=== PATIENT | female | born 1980 | race Caucasian/White ===

== ENCOUNTER 2024-09-06 10:51 | Outpatient (REF) | payer OTHER, SELFPAY ==
[2024-09-06 17:48] LABS: MANUAL DIFF FLAG NO
[2024-09-06 18:04] LABS: Appearance Urine Clear; Color Urine Yellow; Glucose Urine UA Negative (Negative); Leukocyte Esterase Urine Moderate (2+) (Negative); Nitrite Urine Negative (Negative); UMIC TRIGGER UA YES; Urine Blood Large (3+) (Negative); Urine Ketones Trace mg/dL (Negative); Urine Protein Negative (Neg-Trace)
[2024-09-06 18:30] LABS: Basophils Absolute Auto 0.1 X10*3/uL (0.0-0.2); Basophils Percent Auto 0.9 % (0-2); Eosinophils Absolute Auto 0.1 X10*3/uL (0.0-0.4); Eosinophils Percent Auto 0.7 % (0-4); Hematocrit 42.2 % (37.0-47.0); Hemoglobin 13.3 g/dl (12.0-16.0); Imm Gran Abs Auto 0.05 X10*3/uL (0.00-0.03); Imm Gran Pct Auto 0.5 % (0.0-0.4); Lymphocytes Absolute Auto 2.3 X10*3/uL (1.2-4.9); Lymphocytes Percent Auto 23.8 % (20-40); Mean Corpuscular HGB Conc 31.5 g/dl (31.0-35.0); Mean Corpuscular Hemoglobin 26.3 pg (27.0-33.0); Mean Corpuscular Volume 83.6 fL (80.0-98.0); Mean Platelet Volume 10.2 fL (9.4-12.3); Monocytes Absolute Auto 0.5 X10*3/uL (0.1-1.2); Monocytes Percent Auto 4.7 % (2-11); Neutrophils Absolute Auto 6.7 x10*3/uL (2.0-8.3); Neutrophils Percent Auto 69.4 % (45-73); Platelet Count 455 X10*3/uL (160-400); Red Blood Count 5.05 X10*6/uL (4.20-5.50); Red Cell Distribution Width 14.5 % (11.0-16.0); White Blood Count 9.6 X10*3/uL (4.8-10.8)
[2024-09-06 18:32] LABS: Alanine Aminotransferase 17 U/L (0-31); Aspartate Amino Transferase 29 U/L (5-31); C Reactive Protein 0.79 mg/dL (< or = 0.50); Estimated Glomerular Filt Rate > 60
[2024-09-06 18:42] LABS: Creatinine Urine 123.38 mg/dL; Total Protein Urine Random < 7 mg/dL (<12)
[2024-09-06 18:44] LABS: Bacteria Urine 4+ (None Seen); Hyaline Casts Urine 0-2 /LPF (0-2); RBC Urine >20 /HPF (0-2); WBC Urine 21-50 /HPF (0-5)
[2024-09-06 19:38] LABS: Erythrocyte Sedimentation Rate 13 MM/HR (0-20)
[2024-09-07 15:24] LABS: Anti DNA DS Antibody 1 IU/mL; SM/Ribonucleoprotein Ab <1.0 NEG AI (<1.0 NEG); Smith Protein <1.0 NEG AI (<1.0 NEG)
[2024-09-10 17:54] LABS: Complement C3 167 mg/dL (83-193)
[2024-09-11 10:04] LABS: ANA Titer 2 1:40 titer; Anti Nuclear Antibody Pattern Nuclear, Homogeneous; Anti Nuclear Antibody Screen POSITIVE (NEGATIVE); Anti Nuclear Antibody Titer 1:40 titer
== END 2024-09-06 10:52 | disposition home or self-care (01) ==
LOC: HO.HKASLDS 10:51
PROVIDERS: PCP Hospitalist; Visit Provider Internal Medicine Rheumatology
DX: R76.8 Other specified abnormal immunological findings in serum (principal); Z79.60 Long term (current) use of unspecified immunomodulators and immunosuppressants
CPT/HCPCS: 36415; 81001; 82565; 82570; 84156; 84450; 84460; 85025; 85652; 86038; 86039; 86140; 86160; 86225; 86235

== ENCOUNTER 2024-09-06 10:51 | Outpatient (AMB) | payer OTHER, SELFPAY ==
--- NOTE | 2024-09-06 11:21 | A.OFFVIS_ITS ---
Vital Signs 09/06/24 11:23 Height 5 ft 6 in Weight 162 lb BMI 26.1 BP 122/67 Blood Pressure Location Lt brachial Position Sitting Pulse 59 Pulse Source Pulse Oximeter Pulse Oximetry (%) 98 Oxygen Delivery Method Room Air Intake Visit Reasons: +HAMIDA Intake Note: Patient present for +HAMIDA blood work externally referred by Dr. Blum, kidney specialist. Patient has records with her today. Allergies morphine Allergy (Mild, Verified 09/06/24 11:27) rash, anaphylaxis. Penicillins Allergy (Mild, Verified 09/06/24 11:27) Rash codeine Adverse Reaction (Mild, Verified 09/06/24 11:27) Rash HPI HPI +HAMIDA: Details: When she was young she had joint pains in her ankle, oral ulcers and positive HAMIDA 1:800. Lupus was suspected. She saw Dr. Florez who did not find evidence of systemic lupus and reported that she had false positive HAMIDA. Patient brought in records, which I have reviewed. Positive HAMIDA 1:640 with repeat 1:320 1995. Subsequently she has had HAMIDA is repeated in 2001 and 2002. HAMIDA has been 1:800 in 2001. She continues to have oral ulcers 1-2 twice a month She has chronic fatigue and joint pain. No joint swelling. She has pain in knees, ankles, 6 months of lateral hips, lower back pain. She is turning over from side to side at [facility] due pain. Bilateral knee pain for 4 years. Pain is worse with walking and going up stairs. No pain in knees with rest. She lost weight on wegovy 40lb, gained 30lbs when off of it and recently started it again. Not self medicating. medicating. No functional limitation. Malar rash exacerbated with fatigue. She has had malar rash for years. Fingers and big toe turns purple after she comes home from work and changes cloths with parenthesis in toes. It takes half an hour for symptoms to resolve without warming. She does not like wearing socks. Occurs more frequently in feet than fingers. She has epsiodes of an area of finger turning purple and painful lasting up to 3 days, self resolves. Recently started taking magnesium supplement for hip pain with some benefit. Takes ibuprofen 800mg PRN neck pain. Denies fevers, pleurisy, dyspnea, urinary symptoms, paresthesias in sicca symptoms, history of PE or miscarriages. Pmx: HTN, hyperkalemia Hx cholescytectomy, hyperaparathrydoism with hypercalcium s/p parathyroidectomy, breast mass removal, breast reduction Mother has OA. 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 [employer] Medical History (Updated 09/06/24 @ 22:41 by Jony Jorge MD) Parathyroid gland disorder FH: cholecystectomy Surgical History (Updated 09/06/24 @ 11:32 by Tatiana Schultz CMA) S/P bilateral breast reduction Family History (Updated 09/06/24 @ 11:34 by Tatiana Schultz CMA) Mother Osteoarthritis Father Non-Hodgkin lymphoma Social History (Updated 09/06/24 @ 11:35 by Tatiana Schultz CMA) Alcohol intake: current Alcohol intake frequency: holidays/special occasions only Comment: selzer Tobacco use type: Cigarette Review of Systems Const All systems reviewed & are unremarkable except as noted in HPI and below Physical Exam Vital Signs: Last Vital Signs Pulse 59 09/06/24 11:23 BP 122/67 09/06/24 11:23 Pulse Ox 98 09/06/24 11:23 Oxygen Delivery Method Room Air 09/06/24 11:23 BMI result Body Mass Index 26.1 Const Other: General: Comfortable CVS: RRR Respiratory: clear to auscultation bilaterally. Good respiratory effort Oral: No oral ulceration Skin: Malar erythema present, discoloration of fingertips, no digital ulcers. MSK: No tenderness of any joints. No synovitis. Good range of motion of upper extremities and lower extremities. Bilateral trochanteric bursa present. Assessment & Plan Assessment & Plan (1) Positive HAMIDA (antinuclear antibody): Comment: She is presenting with malar rash, recurrent oral ulcers, and Raynaud's phenomenon. I will further workup for systemic lupus erythematosus with labs. She has episodes of areas of purple appearing on her fingers with pain lasting up to 3 days of unclear etiology. I have asked her to keep a photo diary. Code(s): R76.8 - Other specified abnormal immunological findings in serum Category: Medical Plan: Labs ordered We discussed conservative management of Raynaud's phenomenon Photo diary Return to clinic in 2-3 weeks without makeup (2) Knee pain, bilateral: Comment: Chronic knee pain. Unremarkable exam. Code(s): M25.561 - Pain in right knee; M25.562 - Pain in left knee Category: Medical Qualifiers: Chronicity: chronic Qualified Code(s): M25.561 - Pain in right knee; M25.562 - Pain in left knee; G89.29 - Other chronic pain Plan: X-ray bilateral knees ordered Return to clinic in 2-3 weeks (3) Trochanteric bursitis of both hips: Comment: Discussed diagnosis and conservative management. Code(s): M70.61 - Trochanteric bursitis, right hip; M70.62 - Trochanteric bursitis, left hip Category: Medical Plan: PT ordered (4) Raynaud disease: Comment: Affecting feet and fingers. Code(s): I73.00 - Raynaud's syndrome without gangrene Category: Medical Qualifiers: Raynaud?s-associated gangrene presence: without gangrene Qualified Code(s): I73.00 - Raynaud's syndrome without gangrene Plan: Discussed conservative management Orders: Orders C Reactive Protein Today R76.8 - Other specified abnormal immunological findings in serum Creatinine Today Z79.60 - long term acute care registered nurse (current) use of unspecified immunomod ulators and immunosuppressants Complement C3 Today R76.8 - Other specified abnormal immunological findings in serum Protein Creatinine Ratio, Ur Today R76.8 - Other specified abnormal immunological findings in serum UA w Microscopic Today R76.8 - Other specified abnormal immunological findings in serum XR knee standing BI Today M25.561 - Pain in right knee, M25.562 - Pain in left knee, R76.8 - Other specified abnormal immunological findings in serum PT Evaluation and Treatment Today M25.561 - Pain in right knee, M25.562 - Pain in left knee, M70.61 - Trochanteric bursitis, right hip, M70.62 - Trochanteric bursitis, left hip Erythrocyte Sedimentation Rate Today R76.8 - Other specified abnormal immunological findings in serum Alanine Aminotransferase Today Z79.60 - skilled nursing (current) use of unspecified immunomodulators and immunosuppressants Aspartate Amino Transferase Today Z79.60 - long term acute care registered nurse (current) use of unspecified immunomodulators and immunosuppressants Complete Blood Count Auto Diff Today Z79.60 - skilled nursing (current) use of unspecified immunomodulators and immunosuppressants HAMIDA Reflex Titer and Pattern Today R76.8 - Other specified abnormal immunological findings in serum Anti DNA DS Antibody Today R76.8 - Other specified abnormal immunological findings in serum Anti Extractable Nuclear Ag Today R76.8 - Other specified abnormal immunological findings in serum Complement C4 Today R76.8 - Other specified abnormal immunological findings in serum Coding Level of Care Code New Pt Level 4 (04024) Diagnoses Positive HAMIDA (antinuclear antibody) R76.8 Chronic pain of both knees M25.561; M25.562; G89.29 Chronicity: chronic Trochanteric bursitis of both hips M70.61; M70.62 Raynaud's disease without gangrene I73.00 Raynaud?s-associated gangrene presence: without gangrene
[2024-09-06 11:23] VITALS: BP 122/67; PULSE 59; O2SAT 98; BMI 26.1
== END 2024-09-06 12:34 | disposition home or self-care (01) ==
PROVIDERS: PCP Hospitalist; Visit Provider Internal Medicine Rheumatology
DX: R76.8 Other specified abnormal immunological findings in serum (principal); M25.561 Pain in right knee; M25.562 Pain in left knee; G89.29 Other chronic pain; M70.61 Trochanteric bursitis, right hip; M70.62 Trochanteric bursitis, left hip; I73.00 Raynaud's syndrome without gangrene
CPT/HCPCS: 99204

== ENCOUNTER 2024-09-27 09:49 | Outpatient (AMB) | payer OTHER, SELFPAY ==
[2024-09-27 09:56] VITALS: BP 120/70; PULSE 60; O2SAT 100; BMI 26.3
--- NOTE | 2024-09-27 09:56 | MHC.OFFVIS ---
Vital Signs 09/27/24 09:56 Height 5 ft 6 in Weight 163 lb 2 oz BMI 26.3 BP 120/70 Blood Pressure Location Lt brachial Position Sitting Pulse 60 Pulse Source Pulse Oximeter Pulse Oximetry (%) 100 Oxygen Delivery Method Room Air Intake Visit Reasons: 2-3 Weeks follow up Intake Note: Patient presents today for follow up on bilateral knee pain. She was last seen by Dr. Jorge on 09/06/24. Allergies morphine Allergy (Mild, Verified 09/27/24 09:59) rash, anaphylaxis. Penicillins Allergy (Mild, Verified 09/27/24 09:59) Rash codeine Adverse Reaction (Mild, Verified 09/27/24 09:59) Rash HPI HPI 2-3 Weeks follow up: Details: She had an episode where she had blue discoloration in between her 1st and 2nd webspace of her hand without any pain. Self resolve. Raynaud's is active being managed conservatively. [facility] Medical History (Updated 09/27/24 @ 12:48 by Jony Jorge MD) Parathyroid gland disorder FH: cholecystectomy Surgical History (Updated 09/06/24 @ 11:32 by Tatiana Schultz CMA) S/P bilateral breast reduction Family History (Updated 09/06/24 @ 11:34 by Tatiana Schultz CMA) Mother Osteoarthritis Father Non-Hodgkin lymphoma Social History (Updated 09/06/24 @ 11:35 by Tatiana Schultz CMA) Alcohol intake: current Alcohol intake frequency: holidays/special occasions only Comment: selzer Tobacco use type: Cigarette Review of Systems Const All systems reviewed & are unremarkable except as noted in HPI and below Physical Exam Vital Signs: Last Vital Signs Pulse 60 09/27/24 09:56 BP 120/70 09/27/24 09:56 Pulse Ox 100 09/27/24 09:56 Oxygen Delivery Method Room Air 09/27/24 09:56 BMI result Body Mass Index 26.3 Const Other: General: Comfortable Skin: Malar erythema present, which extends past nasolabial folds, discoloration of fingertips, no digital ulcers. MSK: No tenderness of any joints. No synovitis. Assessment & Plan Assessment & Plan (1) Positive HAMIDA (antinuclear antibody): Comment: She is presenting with malar rash, recurrent oral ulcers, fatigue and Raynaud's phenomenon. We discussed lab results, which revealed thrombocytosis and elevated CRP level. UA reveals hematuria but patient was spotting at the time when it was done. She does not have specific markers or disease activity markers related to systemic lupus erythematosus. Her malar rash appears to represent rosacea rather than rash associated with cutaneous lupus. At this time my clinical suspicion for systemic connective tissue disease is low. Code(s): R76.8 - Other specified abnormal immunological findings in serum Category: Medical Plan: We discussed conservative management of Raynaud's phenomenon Photo diary Repeating CBC and UA Dermatology follow-up [facility] for evaluation and management of rosacea I recommend that she follow-up with PCP for evaluation of fatigue and consider sleep study. We discussed importance of exercise. She used to have a very active lifestyle and now goes to sleep around 7:30-8pm every day. I recommend that she resume exercise routine daily 15-30 minutes each day. Return to clinic in 3 months for Raynaud's syndrome, trochanteric bursa and knee pain management (2) Knee pain, bilateral: Comment: Chronic knee pain. Unremarkable exam. Code(s): M25.561 - Pain in right knee; M25.562 - Pain in left knee Category: Medical Qualifiers: Chronicity: chronic Qualified Code(s): M25.561 - Pain in right knee; M25.562 - Pain in left knee; G89.29 - Other chronic pain Plan: X-ray bilateral knees ordered. Reminded patient to have x-rays done She will be starting physical therapy Return to clinic in 3 months (3) Trochanteric bursitis of both hips: Comment: Discussed diagnosis and conservative management. Code(s): M70.61 - Trochanteric bursitis, right hip; M70.62 - Trochanteric bursitis, left hip Category: Medical Plan: She will be starting physical therapy Return to clinic in 3 months (4) Raynaud disease: Comment: Affecting feet and fingers. Code(s): I73.00 - Raynaud's syndrome without gangrene Category: Medical Qualifiers: Raynaud?s-associated gangrene presence: without gangrene Qualified Code(s): I73.00 - Raynaud's syndrome without gangrene Plan: Discussed conservative management Return to clinic in 3 months Orders: Orders XR knee LT 2V Today M17.0 - Bilateral primary osteoarthritis of knee Complete Blood Count Auto Diff Today D75.839 - Thrombocytosis, unspecified, R76.8 - Other specified abnormal immunological findings in serum XR knee RT 2V Today M17.0 - Bilateral primary osteoarthritis of knee UA w Microscopic Today D75.839 - Thrombocytosis, unspecified, R76.8 - Other specified abnormal immunological findings in serum Coding Level of Care Code Est Pt Level 4 (57538) Complex EM visit Add On G2211 Diagnoses Positive HAMIDA (antinuclear antibody) R76.8 Chronic pain of both knees M25.561; M25.562; G89.29 Chronicity: chronic Trochanteric bursitis of both hips M70.61; M70.62 Raynaud's disease without gangrene I73.00 Raynaud?s-associated gangrene presence: without gangrene
--- OUTSIDE RECORDS SUMMARY | 2024-09-27 12:52 | XMS_ITS ---
Author Organization [facility] Address [address] [address] Care Team Providers Care Candy Mixer Name Role Phone GENIE YORK Primary Care Provider REASON FOR VISIT Hospital follow up needed Encounters Encounter Location Date Provider Diagnosis [facility] [address] [facility] [address] [place] [address] 08/10/2024 GENIE YORK Plan Of Treatment Next Appt Details Provider Name:GENIE YORK , 10/22/2024 03:45:00 PM, [address] [facility] [address], [place], [address], Progress Notes * ANDRADE SAAVEDRA ADOB:1980 (44 yo F)Acc No.[id number]:08/10/2024 Patient:?ANDRADE SAAVEDRA :1980???Age:44 Y???Sex:Female Address:[address], [place] [address] * true * Date:? Generated for Gurvinderi estuardo/Emelyn/eTransmitting on:?09/27/2024 12:52 PM EST
--- OUTSIDE RECORDS SUMMARY | 2024-09-27 12:53 | XMS_ITS | Clinical Summary ---
Author Organization [facility] Address [address] [address] Phone Care Team Providers Care Hydrogen Cell Tender Name Role Phone Clarence Huynh MD Primary Care Provider [phone] Allergies Active Allergy Reactions Criticality Noted Date Comments Codeine Rash Low 06/14/2023 Other reaction(s): headache that went to face and back Latex Rash,Other (see comments) Low 06/14/2023 Morphine 06/14/2023 Other reaction(s): difficulty breathing Penicillin G Rash Low 06/14/2023 Medications hydrOXYzine (ATARAX) 50 MG tablet Take 50 mg by mouth 1 (one) time each day Active PARoxetine (PAXIL) 30 MG tablet Take 30 mg by mouth 1 (one) time each day Active omeprazole (PriLOSEC) [address] capsule Take 40 mg by mouth 1 (one) time each day 04/10/2021 Active norgestimate-et hinyl estradiol (Sprintec 28) 0.25-35 MG-MCG per tablet Take 1 tablet by mouth 1 (one) time each day Active methylphenidate (RITALIN) 20 MG tablet Take 20 mg by mouth in the morning and 20 mg in the evening. 05/17/2013 Active atorvastatin (Lipitor) 10 MG tablet Take 1 tablet (10 mg total) by mouth 1 (one) time each day 90 tablet 3 08/15/2023 Active hydroCHLOROthia zide 25 MG tablet TAKE 1 TABLET BY MOUTH EVERY DAY 30 tablet 11 05/25/2024 Active lisinopril (PRINIVIL,ZESTR IL) 30 MG tablet Take 1 tablet (30 mg total) by mouth 1 (one) time each day 90 tablet 3 06/12/2024 Active Active Problems Problem Noted Date Diagnosed Date Hypertension 08/09/2023 Hyperkalemia 08/09/2023 Raynaud's phenomenon 08/09/2023 Abnormal radiologic findings on diagnostic imaging of unspecified kidney 06/13/2023 Family History Medical History Relation Comments Thyroid disease Mother Relation Status Comments Mother Social History Tobacco Use Types Packs/Day Years Used Date Smoking Tobacco: Never Smokeless Tobacco: Never Tobacco Cessation:Counseling Given: Not Answered Alcohol Use Standard Drinks/Week Comments Yes 0 (1 standard drink = 0.6 oz pur e alcohol) socially Comments Unknown Sex and Gender Information Value Date Recorded Sex Assigned at Not on file Legal Sex Female 1:41 PM EDT Gender Identity Not on file Sexual Orientation Not on file Last Filed Vital Signs Vital Sign Reading Time Taken Comments Blood Pressure 122/85 06/12/2024 8:00 AM EDT Pulse 60 06/12/2024 8:00 AM EDT Temperature - - Respiratory Rate - - Oxygen Saturation 94% 06/12/2024 8:00 AM EDT Inhaled Oxygen Concentration - - Weight 75.3 kg (166 lb) 06/12/2024 8:00 AM EDT Height 167.6 cm (5' 6 ) 06/12/2024 8:00 AM EDT Body Mass Index 26.79 06/12/2024 8:00 AM EDT Plan of Treatment Upcoming Encounters Date Type Department Care Team (Late st Contact Info) Description 12/12/2024 8:20 AM EDT Office Visit [facility] [address] [id number] Colby Blum MD [address] [id number] Health Maintenance Due Date Last Done Comments Pneumococcal Vaccine: Pediat rics (0 to 5 Years) and At-Risk Patients (6 to 64 Years) (1 of 2 - PCV) 1985 Hepatitis B Vaccine (1 of 3 - 19+ 3-dose series) 01/18 Influenza Vaccine (#1) 2024 Insurance [facility] Care Teams Hydrogen Cell Tender Relationship Specialty Start Date End Date Clarence Huynh MD [address] [place] [address] PCP - General Internal Medicine 06/13/23
--- OUTSIDE RECORDS SUMMARY | 2024-09-27 12:53 | XMS_ITS ---
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 Name Role Phone GENIE YORK Primary Care Provider Allergies Allergen (clinical drug ingredient) Drug/Non Drug Allergy documented on EMR Reaction Allergy Type Onset Date Status codeine Codeine rash Drug Allergy Active Latex Latex rash Allergy Active Penicillin rash Drug Allergy Active Morphine Sulfate (Bulk) anaphylaxis Drug Allergy Active REASON FOR VISIT 1 month follow up UTOX Medications Medication SIG (Take, Route, Frequency, Duration) Notes Start Date End Date Status Methylphenidate HCl 20 MG TAKE 1 TABLET BY MOUTH TWO TIMES A DAY ON AN EMPTY STOMACH Twice a day for 28 days 09/03/2024 Active Ondansetron HCl 8 MG 1 tablet as needed Orally twice a day for 30 days 01/13/2023 Not-Taking Ondansetron HCl 4 MG 1 tablet Orally twice a day for 30 days 12/13/2022 Active Flonase Allergy Relief 50 MCG/ACT 1 spray in each nostril Nasally Once a day for 30 day(s) 07/26/2022 Not-Taking Wegovy 0.5 MG/0.5ML 0.5 mg Subcutaneous once a week for 30 days 08/25/2022 Active PARoxetine HCl 20 MG 1 tablet in the morning Orally Once a day Active Omeprazole 40 MG 1 capsule 30 minutes before morning meal Orally Once a day for 90 days Active hydrOXYzine HCl 50 MG 1 tablet at bedtim e as needed Orally Once a day for 90 days Active hydroCHLOROthiazide 25 MG 1 tablet in th e morning Orally Once a day for 30 days 05/20/2023 Active Atorvastatin Calcium 10 MG 1 tablet Oral ly Once a day for 90 days Active Sprintec 28 0.25-35 MG-MCG 1 tablet Oral ly Once a day Active Lisinopril 20 MG 1 tablet Orally Once a day Active Social History Tobacco Use: Social History Observation Description Date Details (start date - stop date) Never Smoker NA - NA Tobacco Use/Smoking Question Answer Notes Are you a nonsmoker Alcohol Screen (Audit-C) Question Answer Notes Did you have a drink contain ing alcohol in the past year? Yes How often did you have a dri nk containing alcohol in the past year? Monthly or less (1 point) Points 1 Interpretation Negative Problems Problem Type SNOMED Code ICD Code Onset Dates Problem Status W/U Status Risk Notes Problem Overweight (664274041) Overweight (BMI 25.0-29.9) (E66.3) Active confirmed Vital Signs Temperature 96.9 degrees Fahrenheit 09/03/19 25 Oximetry 98 % 09/03/2024 Heart Rate 96 /min 09/03/2024 Blood pressure systolic 118 mm Hg 09/03/19 25 Blood pressure diastolic 74 mm Hg 025 Weight 166.9 lbs 09/03/2024 BMI 27.77 kg/m2 09/03/2024 Height 65 in 09/03/2024 Encounters Encounter Location Date Provider Diagnosis [facility] [address] [facility] [address] [place] [address] 09/03/2024 GENIE YORK Attention and concentration deficit R41.840 ; Overweight (BMI 25.0-29.9) E66.3 ; Dietary counseling and surveillance Z71.3 ; Mixed hyperlipidemia E78.2 and Essential (primary) hypertension I10 Assessments Encounter Date Diagnosis (ICD Code) Assessment Notes Treatment Notes Treatment Clinical Notes Section Notes 09/03/2024 Attention and concentration deficit (ICD-10 - R41.840) Andrade is a 44-year-old lady with ADD, insomnia, galan's esophagus, polyosteoarthritis , hyperlipidemia, and hypertension here for follow-up Plan is as follows: Hypertension. Blood pressure is within reasonable limits. She sees Dr. Jimenez at [facility]phrology. Hyperlipidemia. Continue Atorvastatin 10 MG once a day. ADHD. Stable on Methylphenidate 20 MG. She does not have any side effects. Overweight. Continue Wegovy 0.5 MG/0.5ML once a day. Advised dietary restrictions and regimental exercise. Goal is to lose 5-6 lbs a month. Eye screening. She sees her reefer truck driver regularly. Dental screening. She sees dentist regularly. Skin cancer screening. She sees her social economist regularly. Breast cancer screening. She is up-to-date on her mammogram. Female screening. She follows up with her record producer for breast and pelvic exams. Colon cancer screening. She had her colonoscopy done at [facility] and is on 3-[id number]. Immunizations. She is up-to-date on her vaccinations. General health concerns discussed with patient. 09/03/2024 Overweight (BMI 25.0-29.9) (ICD-10 - E66.3) Andrade is a 44-year-old lady with ADD, insomnia, galan's esophagus, polyosteoarthritis , hyperlipidemia, and hypertension here for follow-up Plan is as follows: Hypertension. Blood pressure is within reasonable limits. She sees Dr. Jimenez at Nephrology. Hyperlipidemia. Continue Atorvastatin 10 MG once a day. ADHD. Stable on Methylphenidate 20 MG. She does not have any side effects. Overweight. Continue Wegovy 0.5 MG/0.5ML once a day. Advised dietary restrictions and regimental exercise. Goal is to lose 5-6 lbs a month. Eye screening. She sees her reefer truck driver regularly. Dental screening. She sees dentist regularly. Skin cancer screening. She sees her social economist regularly. Breast cancer screening. She is up-to-date on her mammogram. Female screening. She follows up with her record producer for breast and pelvic exams. Colon cancer screening. She had her colonoscopy done at [facility] and is on [id number]. Immunizations. She is up-to-date on her vaccinations. General health concerns discussed with patient. 09/03/2024 Dietary counseling and surveillance (ICD-10 - Z71.3) Andrade is a 44-year-old lady with ADD, insomnia, galan's esophagus, polyosteoarthritis , hyperlipidemia, and hypertension here for follow-up Plan is as follows: Hypertension. Blood pressure is within reasonable limits. She sees Dr. Jimenez at Nephrology. Hyperlipidemia. Continue Atorvastatin 10 MG once a day. ADHD. Stable on Methylphenidate 20 MG. She does not have any side effects. Overweight. Continue Wegovy 0.5 MG/0.5ML once a day. Advised dietary restrictions and regimental exercise. Goal is to lose 5-6 lbs a month. Eye screening. She sees her reefer truck driver regularly. Dental screening. She sees dentist regularly. Skin cancer screening. She sees her social economist regularly. Breast cancer screening. She is up-to-date on her mammogram. Female screening. She follows up with her record producer for breast and pelvic exams. Colon cancer screening. She had her colonoscopy done at [facility] and is on [id number]. Immunizations. She is up-to-date on her vaccinations. General health concerns discussed with patient. 09/03/2024 Mixed hyperlipidemia (ICD-10 - E78.2) Andrade is a 44-year-old lady with ADD, insomnia, galan's esophagus, polyosteoarthritis , hyperlipidemia, and hypertension here for follow-up Plan is as follows: Hypertension. Blood pressure is within reasonable limits. She sees Dr. Jimenez at Nephrology. Hyperlipidemia. Continue Atorvastatin 10 MG once a day. ADHD. Stable on Methylphenidate 20 MG. She does not have any side effects. Overweight. Continue Wegovy 0.5 MG/0.5ML once a day. Advised dietary restrictions and regimental exercise. Goal is to lose 5-6 lbs a month. Eye screening. She sees her reefer truck driver regularly. Dental screening. She sees dentist regularly. Skin cancer screening. She sees her social economist regularly. Breast cancer screening. She is up-to-date on her mammogram. Female screening. She follows up with her record producer for breast and pelvic exams. Colon cancer screening. She had her colonoscopy done at [facility] and is on [id number]. Immunizations. She is up-to-date on her vaccinations. General health concerns discussed with patient. 09/03/2024 Essential (primary) hypertension (ICD-10 - I10) Andrade is a 44-year-old lady with ADD, insomnia, galan's esophagus, polyosteoarthritis , hyperlipidemia, and hypertension here for follow-up Plan is as follows: Hypertension. Blood pressure is within reasonable limits. She sees Dr. Jimenez at Nephrology. Hyperlipidemia. Continue Atorvastatin 10 MG once a day. ADHD. Stable on Methylphenidate 20 MG. She does not have any side effects. Overweight. Continue Wegovy 0.5 MG/0.5ML once a day. Advised dietary restrictions and regimental exercise. Goal is to lose 5-6 lbs a month. Eye screening. She sees her reefer truck driver regularly. Dental screening. She sees dentist regularly. Skin cancer screening. She sees her social economist regularly. Breast cancer screening. She is up-to-date on her mammogram. Female screening. She follows up with her record producer for breast and pelvic exams. Colon cancer screening. She had her colonoscopy done at [facility] and is on [id number]. Immunizations. She is up-to-date on her vaccinations. General health concerns discussed with patient. Plan Of Treatment Medication Medication Name Sig Start Date Stop Date Notes Methylphenidate HCl 20 MG TAKE 1 TABLET BY MOUTH TWO TIMES A DAY ON AN EMPTY STOMACH Twice a day for 28 days 09/03/2024 Ondansetron HCl 4 MG 1 tablet Orally twi ce a day for 30 days 12/13/2022 Next Appt Details Follow Up: 4 Weeks, Reason: Provider Name:GENIE YORK , 10/22/2024 03:45:00 PM, [address] [place] [address], [id number], Procedure Notes * Category Sub-Category Detail Notes Urine Toxicology Urine Toxicology Cocaine: Negative Morphine: Negative Marijuanna: Negative Benzodiazepines: Negative Oxycodone: Negative Amphetamine: Negative Barbiturates: Negative Buprenorphine: Negative Methadone: Negative MDMA: Negative Proproxyphene: Negative Phencyclidine: Negative Tricyclic Antidepressant: Negative Fentanyl: Negative Alcohol: Negative MET: Negative Progress Notes * ANDRADE SAAVEDRA ADOB:1980 (44 yo F)Acc No.[id number]:09/03/2024 Progress Notes Patient:?ANDRADE SAAVEDRA Provider:?GENIE YORK MD :1980???Age:44 Y???Sex:Female D ate:09/03/2024 Address:[address] [place] [address] [address] [id number] Subjective: * Chief Complaints: * ???1 month follow up UTOX* * * HPI: ???Internal Medicine:?Andrade is a 44-year-old lady with ADD, insomnia, galan's esophagus, polyosteoarthritis, hyperlipidemia, and hypertension here for follow-up. Vision and hearing are stable. She he is slowly gaining weight because she is off GLP-1. She gained 3 lbs since last visit. She is doing well on current regimen of methylphenidate 20 mg 1 tablet twice a day. She is physically active and try to exercise as much as possible. No anxiety or depression. She denies any other concerns today. * ROS:?General/Constitutional:?Overall health?Good.?Change in appetite?denies.?Chills?denies.?Fever?denies.?Night sweats?denies.?Sleep disturbance?denies.?Weight gain?denies.?Weight loss?denies.?Neurologic:?Difficulty speaking?denies.?Dizziness?denies.?Gait abnormality?denies.?Headache?denies.?Loss of strength?denies.?Memory loss?denies.?Seizures?denies.?Tingling/Numbness?denies.?Ophthalmologic:?Blurred vision?denies.?Discharge?denies.?Dry eye?denies.?Red eye?denies.?ENT:?Change in Voice?Denies.?Cold Symptoms?Denies.?Cough?Denies.?Dizziness?Denies.?Nasal Congestion?Denies.?Otalgia?Denies.?postnasal drip?Denies.?Blocked ear?denies.?Nosebleed?denies.?Snoring?denies.?Cardiovascular:?Diaphoresis?Denies.?Pedal Edema?Denies.?PND (Paroxsymal nocturnal dyspnea)?Denies.?Chest pain?denies.?Difficulty laying flat?denies.?Dyspnea on exertion?denies.?Heart murmur?denies.?Orthopnea?denies.?Respiratory:?Snoring?denies.?Asthma?denies.?Cough?denies.?Shortness of breath with exertion?denies.?Sputum production?denies.?Wheezing?denies.?Gastrointestinal:?Change in bowel habits?denies.?Constipation?denies.?Decreased appetite?denies.?Diarrhea?denies.?Heartburn?denies.?Nausea?denies.?Vomiting?ambreen es.?Musculoskeletal:?tingling/numbness?Denies.?myalgias?Denies.?Joint Swelling?Denies.?extremeties?normal.?Arthritis?denies.?Back problems?denies.?Carpal tunnel?denies.?Joint stiffness?denies.?Muscle aches?denies.?Endocrine:?Bowel Changes?Denies.?Breast Discharge?Denies.?poor libido?Denies.?Cold intolerance?denies.?Excessive sweating?denies.?Excessive thirst?denies.?Frequent urination?denies.?Thyroid problems?denies.?Skin:?Bruising?Denies.?Eczema?denies.?Hair changes?denies.?Rash?denies.?Skin lesion(s)?denies.?Psychiatric:?Anxiety?denies.?Depressed mood?denies.?Difficulty sleeping?denies.?Nervous breakdown?denies.?Substance abuse?denies.?Urology:?abnormal menstrual bleeding?denies.?blood in urine?denies.?burning on urination?denies.?difficulty urinating?denies.?discharge?denies.?dysuria?denies.? * Medical History:? * Surgical History:?parathyroi dectomy 2016breast reduction left breast benign mass removal cholecystectomy * Hospitalization/Major Diagno stic Procedure:? * Family History:?Father: Non- Hodgkin's Lymphoma.? mother has thyroid issues. * Social History:?Tobacco Use:?Tobacco Use/Smoking?Are you a?nonsmoker ???Drugs/Alcohol:?Alcohol Screen (Audit-C)?Did you have a drink containing alcohol in the past year??Yes ?How often did you have a drink containing alcohol in the past year??Monthly or less (1 point) ?Points?1 ?Interpretation?Negative ???Miscellaneous:?Exercise: yes. ?Marital status: , in relationship with male partner. 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 * Medications:?TakingLisinopri l 20 MG Tablet 1 tablet Orally Once a day Sprintec 28 0.25-35 MG-MCG Tablet 1 tablet Orally Once a day PARoxetine HCl 20 MG Tablet 1 tablet in the morning Orally Once a day Omeprazole 40 MG Capsule Delayed Release 1 capsule 30 minutes before morning meal Orally Once a day hydroCHLOROthiazide 25 MG Tablet 1 tablet in the morning Orally Once a day Atorvastatin Calcium 10 MG Tablet 1 tablet Orally Once a day hydrOXYzine HCl 50 MG Tablet 1 tablet at bedtime as needed Orally Once a day Ondansetron HCl 4 MG Tablet 1 tablet Orally twice a day Wegovy 0.5 MG/0.5ML Solution Auto-injector 0.5 mg Subcutaneous once a week Methylphenidate HCl 20 MG Tablet TAKE 1 TABLET BY MOUTH TWO TIMES A DAY ON AN EMPTY STOMACH Twice a day Taking Lisinopril 20 MG Tablet 1 tablet Orally Once a day Taking Sprintec 28 0.25-35 MG-MCG Tablet 1 tablet Orally Once a day Taking PARoxetine HCl 20 MG Tablet 1 tablet in the morning Orally Once a day Taking Omeprazole 40 MG Capsule Delayed Release 1 capsule 30 minutes before morning meal Orally Once a day Taking hydroCHLOROthiazide 25 MG Tablet 1 tablet in the morning Orally Once a day Taking Atorvastatin Calcium 10 MG Tablet 1 tablet Orally Once a day Taking hydrOXYzine HCl 50 MG Tablet 1 tablet at bedtime as needed Orally Once a day Taking Ondansetron HCl 4 MG Tablet 1 tablet Orally twice a day Taking Wegovy 0.5 MG/0.5ML Solution Auto-injector 0.5 mg Subcutaneous once a week Taking Methylphenidate HCl 20 MG Tablet TAKE 1 TABLET BY MOUTH TWO TIMES A DAY ON AN EMPTY STOMACH Twice a day Not-TakingFlonase Allergy Relief 50 MCG/ACT Suspension 1 spray in each nostril Nasally Once a day Ondansetron HCl 8 MG Tablet 1 tablet as needed Orally twice a day Medication List reviewed and reconciled with the patientNot-Taking Flonase Allergy Relief 50 MCG/ACT Suspension 1 spray in each nostril Nasally Once a day Not-Taking Ondansetron HCl 8 MG Tablet 1 tablet as needed Orally twice a day Medication List reviewed and reconciled with the patient * Allergies:?Penicillin: rashC odeine: rashLatex: rashMorphine Sulfate (Bulk): anaphylaxisno[Allergies Verified] Objective: * Vitals:?Temp:96.9F, Oxygen s at %:98%, HR:96/min, BP:118/74mm Hg, Wt:166.9lbs, BMI:27.77Index, Ht: 65 in. * Examination: ???General Examination: ?Psychiatry?Normal.?GENERAL APPEARANCE:?Well developed, well nourished, in no acute distress.?MUSCULOSKELETAL:?Normal.?HEAD:?Normocephalic, atraumatic.?EYES:?Pupils equal, round, reactive to light and accommodation, sclera non-icteric.?EARS:?Normal.?ORAL CAVITY:?Normal.?THROAT:?Clear.?OROPHARYNX?Normal.?SINUSES?Normal.?NECK/THYROID:?Neck supple, full range of motion, no cervical lymphadenopathy.?SKIN:?Warm and dry, no suspicious lesions.?HEART:?Normal.?LUNGS:?Normal.?BREASTS:?__.?ABDOMEN:?Soft, nontender, nondistended, bowel sounds present, normal.?EXTREMITIES:?Normal.?PERIPHERAL PULSES:?Normal.?NEUROLOGIC:?alert and oriented,cranial nerves 2-12 grossly intact,motor strength normal upper and lower extremities is appropriate but the right leg is shaking, sensations intact.? Gait normal.?FEMALE GENITOURINARY:?__.?MALE GENITOURINARY:?__.?PODIATRIC:?Normal.?Supply Analyst? .? Assessment: * Assessment: 1.?Attention and concentrati on deficit - R41.840 (Primary)???2.?Overweight (BMI 25.0-29.9) - E66.3???3.?Dietary counseling and surveillance - Z71.3???4.?Mixed hyperlipidemia - E78.2???5.?Essential (primary) hypertension - I10??? Andrade is a 44-year-old lady w ith ADD, insomnia, galan's esophagus, polyosteoarthritis, hyperlipidemia, and hypertension here for follow-up Plan is as follows: Hypertension. Blood pressure is within reasonable limits. She sees Dr. Jimenez at Nephrology. Hyperlipidemia. Continue Atorvastatin 10 MG once a day. ADHD. Stable on Methylphenidate 20 MG. She does not have any side effects. Overweight. Continue Wegovy 0.5 MG/0.5ML once a day. Advised dietary restrictions and regimental exercise. Goal is to lose 5-6 lbs a month. Eye screening. She sees her reefer truck driver regularly. Dental screening. She sees dentist regularly. Skin cancer screening. She sees her social economist regularly. Breast cancer screening. She is up-to-date on her mammogram. Female screening. She follows up with her record producer for breast and pelvic exams. Colon cancer screening. She had her colonoscopy done at [facility] and is on [id number]. Immunizations. She is up-to-date on her vaccinations. General health concerns discussed with patient. Plan: * Treatment: * Procedures:?Urine Toxicology:?Urine Toxicology ?Cocaine?Negative ?Morphine?Negative ?Marijuanna?Negative ?Benzodiazepines?Negative ?Oxycodone?Negative ?Amphetamine?Negative ?Barbiturates?Negative ?Buprenorphine?Negative ?Methadone?Negative ?MDMA?Negative ?Proproxyphene?Negative ?Phencyclidine?Negative ?Tricyclic Antidepressant?Negative ?Fentanyl?Negative ?Alcohol?Negative ?MET?Negative? * Procedure Codes:?69561 DRUG TEST PRSMV DIR OPT OBS, Modifiers: QW 3074F SYST BP LT 130 MM [id number] DIAST BP < 80 MM HG * Follow Up:?4 Weeks * * Sign off status: Completed true * Provider:?GENIE YORK MD Date:?09/03 Generated for Davey marte/Emelyn/eTransmsixto on:?09/27/2024 12:52 PM EST History and Physical Notes * HPI (History of Present Illness) Category Sub-Category Detail Notes Category Not es Internal Medicine Andrade is a 44-year-old lady with ADD, insomnia, galan's esophagus, polyosteoarthritis, hyperlipidemia, and hypertension here for follow-up. Vision and hearing are stable. She he is slowly gaining weight because she is off GLP-1. She gained 3 lbs since last visit. She is doing well on current regimen of methylphenidate 20 mg 1 tablet twice a day. She is physically active and try to exercise as much as possible. No anxiety or depression. She denies any other concerns today. Examination Category Sub-Category Detail Notes Category Not es General Examination GENERAL APPEARANCE: Well dev eloped, well nourished, in no acute distress HEAD: Normocephalic, atrau matic EYES: Pupils equal, round, reactive to light and accommodation, sclera non-icteric EARS: Normal THROAT: Clear NECK/THYROID: Neck supple, full ra nge of motion, no cervical lymphadenopathy HEART: Normal LUNGS: Normal ABDOMEN: Soft, nontender, non distended, bowel sounds present, normal NEUROLOGIC: alert and oriented, cranial nerves 2-12 grossly intact, motor strength normal upper and lower extremities is appropriate but the right leg is shaking, sensations intact. Gait normal SKIN: Warm and dry, no saman picious lesions EXTREMITIES: Normal PERIPHERAL PULSES: Normal BREASTS: __ MUSCULOSKELETAL: Normal MALE GENITOURINARY: __ FEMALE GENITOURINARY: __ ORAL CAVITY: Normal PODIATRIC: Normal Psychiatry Normal OROPHARYNX Normal SINUSES Normal Supply Analyst
--- OUTSIDE RECORDS SUMMARY | 2024-09-27 12:53 | XMS_ITS | Patient Health Record ---
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 Name Role Phone Clarence Huynh Primary Care Provider Unavailabl e Allergies Allergen (clinical drug ingredient) Drug/Non Drug Allergy documented on EMR Reaction Allergy Type Onset Date Status codeine Codeine Sulfate Unknown Drug Allergy A ctive Latex Latex Unknown Allergy Active morphine Morphine Unknown Drug Allergy Active Penicillin Unknown Drug Allergy Active Reason For Referral No Information Medications Medication SIG (Take, Route, Fr equency, Duration) Notes Start Date End Date Status hydrOXYzine HCl 25 MG 1 tablet as needed Orally every 8 hrs for 15 Active Plan Of Treatment Pending Test Test Name Order Date X ray : Foot, left 3v 11/20/2020 Insurance Providers Payer Name Payer Address Payer Phone Subscriber Number Group Number Insured Name Patient Relationship to Insured Coverage Start Date Coverage End Date [facility] [address] [facility] [place] [phone] [id number] Alyson Stewart Self - patient is the insured Medical (General) History Medical History History ICD Code galan's esophagus ADD Surgical History Surgery Date(Month/Year) cholecystectomy parathyroidectomy
--- OUTSIDE RECORDS SUMMARY | 2024-09-27 12:53 | XMS_ITS ---
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 Name Role Phone [email or web address] Primary Care Provider REASON FOR VISIT New Refill Request Medications Medication SIG (Take, Route, Frequency, Duration) Notes Start Date End Date Status Methylphenidate HCl 20 MG TAKE 1 TABLET BY MOUTH TWO TIMES A DAY ON AN EMPTY STOMACH Twice a day for 28 days 08/20/2024 Active Encounters Encounter Location Date Provider Diagnosis [facility] [address] [address] 08/20/2024 GENIE YORK Plan Of Treatment Medication Medication Name Sig Start Date Stop Date Notes Methylphenidate HCl 20 MG TAKE 1 TABLET BY MOUTH TWO TIMES A DAY ON AN EMPTY STOMACH Twice a day for 28 days 08/20/2024 Next Appt Details Provider Name:GENIE YORK , 10/22/2024 03:45:00 PM, [address] [place] [address], [phone], Progress Notes * ANDRADE SAAVEDRA ADOB:1980 (44 yo F)Acc No.[id number]:08/20/2024 Patient:?ANDRADE SAAVEDRA :1980???Age:44 Y???Sex:Female Address:[address] [place] [address] [place] [address] * Refills? Refill Methylphenidate HCl Tablet, 20 MG, 56, TAKE 1 TABLET BY MOUTH TWO TIMES A DAY ON AN EMPTY STOMACH, Twice a day, 28 days, Refills=0 * true * Date:? Generated for Davey marte/Emelyn/Jonathanitting on:?09/27/2024 12:53 PM EST
== END 2024-09-27 10:28 | disposition home or self-care (01) ==
PROVIDERS: PCP Hospitalist; Visit Provider Internal Medicine Rheumatology
DX: R76.8 Other specified abnormal immunological findings in serum (principal); M25.561 Pain in right knee; M25.562 Pain in left knee; G89.29 Other chronic pain; M70.61 Trochanteric bursitis, right hip; M70.62 Trochanteric bursitis, left hip; I73.00 Raynaud's syndrome without gangrene
CPT/HCPCS: 99214

== ENCOUNTER 2024-09-27 09:49 | Outpatient (REF) | payer OTHER, SELFPAY ==
--- OUTSIDE RECORDS SUMMARY | 2024-09-27 14:05 | XMS_ITS | Patient Health Record ---
Author Organization [employer] Address [address] [facility] [address] [place] [address] Care Team Providers Care Furnace Firer Name Role Phone GENIE YORK Primary Care Provider Rena Ramsey Unavailable [phone] Allergies Allergen (clinical drug ingredient) Drug/Non Drug Allergy documented on EMR Reaction Allergy Type Onset Date Status codeine Codeine rash Drug Allergy Active Latex Latex rash Allergy Active Penicillin rash Drug Allergy Active Morphine Sulfate (Bulk) anaphylaxis Drug Allergy Active Results Component Value Reference Range Notes TSH-[id number] Reviewed date:05/24/2024 04:51:35 PM Interpretation: Performing Lab:[facility] [place], [address] [facility], Phone - [phone], Director - Esa Notes/Report: TSH 1.920 0.450-4.500 uIU/mL Lipid Panel-[id number] Reviewed date:05/24/2024 04:51:37 PM Interpretation: Performing Lab:[facility], [address] [facility], [place], Phone - [phone], Director - MDJodry Notes/Report: Cholesterol, Total 183 100-199 mg/dL Triglycerides 134 0-149 mg/dL HDL Cholesterol 76 >39 mg/dL VLDL Cholesterol Kiko 23 5-40 mg/dL LDL Chol Calc (NIH) 84 0-99 mg/dL Albumin/Creatinine Ratio,Uri ne-[id number] Reviewed date:05/24/2024 04:51:46 PM Interpretation: Performing Lab:[facility] [place], [address] [facility], [place], Phone - [phone], Director - MDJodry Notes/Report: Creatinine, Urine 210.4 Not Estab. mg/dL Albumin, Urine 7.7 Not Estab. ug/mL Alb/Creat Ratio 4 0-29 mg/g creat Normal: 0 - 29 Moderately increased: 30 - 300 Severely increased: >300 Rheumatoid Factor (RF)-18673 2 Reviewed date:12/21/2023 04:39:36 PM Interpretation: Performing Lab:[facility] [place], [address] [place] [address], Phone - [phone], [facility] [place] Notes/Report: Rheumatoid Factor (RF) <10.0 <14.0 IU/mL C-Reactive Protein, Quant-00 6627 Reviewed date:12/21/2023 04:39:38 PM Interpretation: Performing Lab:[facility] [place], [address] [place] [address], Phone - [phone], [facility] [place] Notes/Report: C-Reactive Protein, Quant 1 0-10 mg/L Sedimentation Rate-[facility] n-[id number] Reviewed date:12/21/2023 04:39:40 PM Interpretation: Performing Lab:[facility] [place], [address] [place] [address], Phone - [phone], [facility] [place] Notes/Report: Sedimentation Rate-[facility] 2 0-32 mm/hr Lyme Disease Serology w/Refl ex-[id number] Reviewed date:12/21/2023 04:39:31 PM Interpretation: Performing Lab:[facility] [place], [address] [place] [address], Phone - [phone], [facility] [place] Notes/Report: Lyme Total Antibody AVA Negative Negative Lyme antibodies not detected. Reflex testing is not indicated. No laboratory evidence of infection with B. burgdorferi (Lyme disease). Negative results may occur in patients recently infected (less than or equal to 14 days) with B. burgdorferi. If recent infection is suspected, repeat testing on a new sample collected in 7 to 14 days is recommended. Anti-La (SS-B) Ab (RDL)-5203 20 Reviewed date:06/05/2024 11:16:42 AM Interpretation: Performing Lab:[facility], [address] [place] [address], Phone - [phone], Director - [facility] Notes/Report: Test(s) 910189-Gofr-Xnceivz Ab by IFA (RDL); 816919- Homogeneous Pattern; 294308-Paflftnt Pattern; 317828-Wnkazxb Pattern; 007623-Fmac-LD-V 52kD Ab, IgG (RDL) was developed and its performance characteristics determined by [facility]. It has not been cleared or approved by the Food and Drug Administration. Anti-La (SS-B) Ab (RDL) <20 <20 Units Negative: <20 Weak Positive: 20-39 Moderate Positive: 40-80 Strong Positive: >80 Anti-Nuclear Ab by IFA (RDL) -[id number] Reviewed date:06/05/2024 11:16:47 AM Interpretation: Performing Lab:[facility], [address] [place] [address], Phone - [phone], Director - [facility] Notes/Report: Test(s) 535577-Rzmx-Dhephqp Ab by IFA (RDL); 167388- Homogeneous Pattern; 036036-Zyupusvs Pattern; 674867-Urimvlj Pattern; 428227-Vvkc-DY-R 52kD Ab, IgG (RDL) was developed and its performance characteristics determined by [facility]. It has not been cleared or approved by the Food and Drug Administration. Test(s) 297742-Hoei-Avtrgmt Ab by IFA (RDL); 844936- Homogeneous Pattern; 483058-Uiqfaepb Pattern; 171147-Mieahea Pattern; 660949-Rfdr-QJ-N 52kD Ab, IgG (RDL) was developed and its performance characteristics determined by [facility]. It has not been cleared or approved by the Food and Drug Administration. Anti-Nuclear Ab by IFA (RDL) Positive Negative Homogeneous Pattern 1:160 <1:40 Speckled Pattern 1:80 <1:40 Midbody Pattern 1:80 <1:40 Note: HAMIDA performed b y Indirect Fluorescent Antibody (IFA) Anti-SS-A 52kD Ab, IgG (RDL) -[id number] Reviewed date:06/05/2024 11:16:56 AM Interpretation: Performing Lab:[facility], [address] [place] [address], [facility], Phone - [phone], Director - [facility] Notes/Report: Test(s) 676395-Vkjv-Nmztxfy Ab by IFA (RDL); 525791- Homogeneous Pattern; 782355-Nbblzbmb Pattern; 620215-Wgapfcy Pattern; 961874-Bkkn-NP-M 52kD Ab, IgG (RDL) was developed and its performance characteristics determined by [facility]. It has not been cleared or approved by the Food and Drug Administration. Anti-SS-A 52kD Ab, IgG (RDL) <20 <20 Units Negative: <20 Weak Positive: 20 - 39 Moderate Positive: 40 - 80 Strong Positive: >80 Anti-Sm Ab (RDL)-249559 Reviewed date:06/05/2024 11:16:49 AM Interpretation: Performing Lab:[facility], [address] [place] [address], Phone - [phone], [facility] Notes/Report: Test(s) 490262-Dloc-Bdixsjs Ab by IFA (RDL); 036973- Homogeneous Pattern; 892390-Bbgjabpv Pattern; 023557-Bkjtqdt Pattern; 125809-Kpem-QG-U 52kD Ab, IgG (RDL) was developed and its performance characteristics determined by [facility]. It has not been cleared or approved by the Food and Drug Administration. Anti-Sm Ab (RDL) <20 <20 Units Negative: <20 Weak Positive: 20-39 Moderate Positive: 40-80 Strong Positive: >80 Myal-Dl-4-789598 Reviewed date:06/05/2024 11:16:51 AM Interpretation: Performing Lab:[facility], [address] [place] [address], Phone - [phone], [facility] Notes/Report: Test(s) 739467-Wuer-Zdvsaaw Ab by IFA (RDL); 072293- Homogeneous Pattern; 981608-Fjuybyez Pattern; 682979-Lurjciz Pattern; 291445-Zocu-WB-A 52kD Ab, IgG (RDL) was developed and its performance characteristics determined by [facility]. It has not been cleared or approved by the Food and Drug Administration. Anti-Shirley-1 <0.2 0.0-0.9 AI Anti-dsDNA Antibodies-344240 Reviewed date:06/05/2024 11:15:54 AM Interpretation: Performing Lab:[facility], [address] [place] [address], Phone - [phone], [facility] Notes/Report: Test(s) 669516-Fzom-Odyhyvg Ab by IFA (RDL); 760635- Homogeneous Pattern; 763099-Xnfzlzdu Pattern; 412469-Ttfuuzj Pattern; 880177-Ynch-GU-O 52kD Ab, IgG (RDL) was developed and its performance characteristics determined by [facility]. It has not been cleared or approved by the Food and Drug Administration. Anti-DNA (DS) Ab Qn 1 0-9 IU/mL Negative <5 Equivocal 5 - 9 Positive >9 Comp. Metabolic Panel (14)-3 81444 Reviewed date:05/24/2024 04:51:49 PM Interpretation: Performing Lab:[facility], [address] [place] [address] Avenue, [place], Phone - [phone], Director - Esa Notes/Report: Glucose 83 70-99 mg/dL BUN 22 6-24 mg/dL Creatinine 0.77 0.57-1.00 mg/dL eGFR 97 >59 mL/min/1.73 BUN/Creatinine Ratio 29 9-23 Sodium 139 134-144 mmol/L Potassium 5.4 3.5-5.2 mmol/L Chloride 103 96-106 mmol/L Carbon Dioxide, Total 24 20-29 mmol/L Calcium 9.4 8.7-10.2 mg/dL Protein, Total 6.7 6.0-8.5 g/dL Albumin 4.2 3.9-4.9 g/dL Globulin, Total 2.5 1.5-4.5 g/dL Bilirubin, Total 0.7 0.0-1.2 mg/dL Alkaline Phosphatase 42 44-121 IU/L AST (SGOT) 17 0-40 IU/L ALT (SGPT) 10 0-32 IU/L Reason For Referral No Information Medications Medication SIG (Take, Route, Frequency, Duration) Notes Start Date End Date Status Methylphenidate HCl 20 MG TAKE 1 TABLET BY MOUTH TWO TIMES A DAY ON AN EMPTY STOMACH Twice a day for 28 days 09/03/2024 Active PARoxetine HCl 20 MG 1 tablet in the morning Orally Once a day Active Omeprazole 40 MG 1 capsule 30 minutes before morning meal Orally Once a day for 90 days Active Ondansetron HCl 8 MG 1 tablet as needed Orally twice a day for 30 days 01/13/2023 Not-Taking Ondansetron HCl 4 MG 1 tablet Orally twice a day for 30 days 12/13/2022 Active Sprintec 28 0.25-35 MG-MCG 1 tablet Oral ly Once a day Active Flonase Allergy Relief 50 MCG/ACT 1 spray in each nostril Nasally Once a day for 30 day(s) 07/26/2022 Not-Taking Lisinopril 20 MG 1 tablet Orally Once a day Active Wegovy 0.5 MG/0.5ML 0.5 mg Subcutaneous once a week for 30 days 08/25/2022 Active hydrOXYzine HCl 50 MG 1 tablet at bedtim e as needed Orally Once a day for 90 days Active hydroCHLOROthiazide 25 MG 1 tablet in th e morning Orally Once a day for 30 days 05/20/2023 Active Atorvastatin Calcium 10 MG 1 tablet Oral ly Once a day for 90 days Active Immunizations Vaccine Route Administration Date Status Comme nts COVID 19 Pfizer Unknown 08/15/2020 Administered COVID 19 Pfizer Unknown 09/05/2020 Administered COVID 19 Pfizer Unknown 06/17/2021 Administered Social History Tobacco Use: Social History Observation [...] Problem Status W/U Status Risk Notes Problem Obesity due to excess calories (168439418) Other obesity due to excess calories (E66.09) Active confirmed Problem Mixed hyperlipidemia (804673876) Mixed hyperlipidemia (E78.2) Active confirmed Problem Insomnia (729507844) Insomnia, unspecified (G47.00) Active confirmed Problem Atherosclerosis of renal artery (23364499) Atherosclerosis of renal artery (I70.1) Active confirmed Problem Galan's esophagus (292466792) Galan's esophagus without dysplasia (K22.70) Active confirmed Problem Polyarthritis (647953461) 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) Active confirmed Problem Attention and concentration deficit (R41.840) Active confirmed Problem Essential hypertension (41786926) Essential (primary) hypertension (I10) Active confirmed Problem Indeterminate colitis (531179792) 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) Active confirmed Problem Adult-onset obesity (167848747) Adult-onset obesity (E66.9) Active confirmed Problem Overweight (360683490) Overweight (BMI 25.0-29.9) (E66.3) Active confirmed Vital Signs Heart Rate 96 /min 09/03/2024 Temperature 96.9 degrees Fahrenheit 09/03/2024 Blood pressure diastolic 74 mm Hg 09/03/2024 Oximetry 98 % 09/03/2024 Height 65 in 09/03/2024 Blood pressure systolic 118 mm Hg 09/03/2024 Weight 166.9 lbs 09/03/2024 BMI 27.77 kg/m2 09/03/2024 Encounters Encounter Location Date Provider Diagnosis [address] [place] [address] 12/19/2023 [facility] Attention and concentration deficit R41.840 ; Pain in unspecified joint M25.50 and Low back pain M54.[address] [address] 04/06/2024 [facility] GUL Attention and concentration deficit R41.840 ; Essential (primary) hypertension I10 ; Mixed hyperlipidemia E78.2 ; Overweight (BMI 25.0-29.9) E66.3 and Dietary counseling and surveillance Z71.[address] [address] 07/10/2024 [facility] GUL Attention and concentration deficit R41.840 ; Annual physical exam Z00.00 ; Mixed hyperlipidemia E78.2 and Essential (primary) hypertension I10 [address] [place] [address] 09/03/2024 [facility] GUL Attention and concentration deficit R41.840 ; Overweight (BMI 25.0-29.9) E66.3 ; Dietary counseling and surveillance Z71.3 ; Mixed hyperlipidemia E78.2 and Essential (primary) hypertension I10 [address] [address] 12/02/2023 [facility] GUL Body mass index [BMI ] 28.0-28.9, adult Z68.[address] [address] 12/19/2023 [facility] [address] [facility] [address] [place] [address] 12/19/2023 [facility] GUL Low back pain, unspecified M54.50 [facility] [address] [facility] [address] 01/16/2024 [facility] [address] [facility] [place] [address] 02/16/2024 [facility] [address] [place] [address] 02/23/2024 [facility] [address] [facility] [place] [address] 02/23/2024 [facility] [address] [place] [address] 03/15/2024 [facility] [address] [facility] [place] [address] 03/29/2024 [facility] [address] [place] [address] 04/04/2024 [facility] [address] [facility] [place] [address] 05/03/2024 [facility] [address] [place] [address] 05/09/2024 [facility] [address] [place] [address] 05/28/2024 [facility] [address] [place] [address] 06/12/2024 [facility] [address] [place] [address] 08/01/2024 [facility] [address] [place] [address] 08/02/[address] [place] [address] 08/10/[address] [place] [address] 10/10/[address] [place] [address] 05/25/2024 [facility] Essential (primary) hypertension I10 [address] [place] [address] 05/25/[address] [place] [address] 06/11/[address] [place] [address] 08/02/[address] [place] [address] 08/20/2024 [facility] Assessments Encounter Date Diagnosis (ICD Code) Assessment Notes Treatment Notes Treatment Clinical Notes Section Notes 12/02/2023 Body mass index [BMI] 28.0-28.9, adult (ICD-10 - Z68.28) 12/19/2023 Pain in unspecified joint (ICD-10 - M25.50) Andrade is a 43-year-old lady with ADD, insomnia, galan's esophagus, polyosteoarthritis , hyperlipidemia, and hypertension here for follow up. Plan is as follows: Hypertension. Blood pressure is within reasonable limits. She sees Dr. Jimenez at Nephrology. Hyperlipidemia. Continue Atorvastatin 10 MG once a day. ADHD. Stable on Methylphenidate 20 MG. She does not have any side effects. Her urine toxicology is positive for Marijuanna. Abstinence advised. Low back pain. Most likely nerve compression. Ordered electromyography. Blood work also ordered to check for any reversible causes. Screening blood work before next appointment. General health concerns discussed with patient. Scribe services used to formulate this note under HIPAA compliance and under [place] law mandated for scribe services. Patient aware of service. Verbal consent and written consent taken from the patient. Patient understands and verbalizes understanding of the scribes services and all questions answered regarding scribes services. Patient agrees to use of scribes services. 12/19/2023 Attention and concentration deficit (ICD-10 - R41.840) Andrade is a 43-year-old lady with ADD, insomnia, galan's esophagus, polyosteoarthritis , hyperlipidemia, and hypertension here for follow up. Plan is as follows: Hypertension. Blood pressure is within reasonable limits. She sees Dr. Jimenez at Nephrology. Hyperlipidemia. Continue Atorvastatin 10 MG once a day. ADHD. Stable on Methylphenidate 20 MG. She does not have any side effects. Her urine toxicology is positive for Marijuanna. Abstinence advised. Low back pain. Most likely nerve compression. Ordered electromyography. Blood work also ordered to check for any reversible causes. Screening blood work before next appointment. General health concerns discussed with patient. Scribe services used to formulate this note under HIPAA compliance and under [place] law mandated for scribe services. Patient aware of service. Verbal consent and written consent taken from the patient. Patient understands and verbalizes understanding of the scribes services and all questions answered regarding scribes services. Patient agrees to use of scribes services. 12/19/2023 Low back pain, unspecified (ICD-10 - M54.50) 04/06/2024 Attention and concentration deficit (ICD-10 - R41.840) Andrade is a 43-year-old lady with ADD, insomnia, galan's esophagus, polyosteoarthritis , hyperlipidemia, and hypertension here for follow up. Plan is as follows: Hypertension. Blood pressure is within reasonable limits. She sees Dr. Jimenez at Nephrology. Hyperlipidemia. Continue Atorvastatin 10 MG once a day. ADHD. Stable on Methylphenidate 20 MG. She does not have any side effects. Her urine toxicology is positive for Marijuanna. Abstinence advised. Overweight. Continue Wegovy 0.25 MG/0.5ML once a day. Advised dietary restrictions and regimental exercise. Goal is to lose 5-6 lbs a month. Screening blood work before next appointment. General health concerns discussed with patient. Scribe services used to formulate this note under HIPAA compliance and under [place] law mandated for scribe services. Patient aware of service. Verbal consent and written consent taken from the patient. Patient understands and verbalizes understanding of the scribes services and all questions answered regarding scribes services. Patient agrees to use of scribes services. 04/06/2024 Essential (primary) hypertension (ICD-10 - I10) Andrade is a 43-year-old lady with ADD, insomnia, galan's esophagus, polyosteoarthritis , hyperlipidemia, and hypertension here for follow up. Plan is as follows: Hypertension. Blood pressure is within reasonable limits. She sees Dr. Jimenez at Nephrology. Hyperlipidemia. Continue Atorvastatin 10 MG once a day. ADHD. Stable on Methylphenidate 20 MG. She does not have any side effects. Her urine toxicology is positive for Marijuanna. Abstinence advised. Overweight. Continue Wegovy 0.25 MG/0.5ML once a day. Advised dietary restrictions and regimental exercise. Goal is to lose 5-6 lbs a month. Screening blood work before next appointment. General health concerns discussed with patient. Scribe services used to formulate this note under HIPAA compliance and under [place] law mandated for scribe services. Patient aware of service. Verbal consent and written consent taken from the patient. Patient understands and verbalizes understanding of the scribes services and all questions answered regarding scribes services. Patient agrees to use of scribes services. 05/25/2024 Essential (primary) hypertension (ICD-10 - I10) 07/10/2024 Attention and concentration deficit (ICD-10 - R41.840) Andrade is a 44-year-old lady with ADD, insomnia, galan's esophagus, polyosteoarthritis , hyperlipidemia, and hypertension here for annual physical. Plan is as follows: Hypertension. Blood pressure is within reasonable limits. She sees Dr. Jimenez at Nephrology. EKG is normal sinus rhythm at 75 bpm with no acute [address] or T wave changes, no bundle branch blocks, normal intervals Hyperlipidemia. Continue Atorvastatin 10 MG once a day. ADHD. Stable on Methylphenidate 20 MG. She does not have any side effects. Overweight. Continue Wegovy 0.25 MG/0.5ML once a day. Advised dietary restrictions and regimental exercise. Goal is to lose 5-6 lbs a month. Eye screening. She sees her insurance office manager regularly. Dental screening. She sees dentist regularly. Skin cancer screening. She sees her hardwood floor finisher regularly. Breast cancer screening. She is up-to-date on her mammogram. Female screening. She follows up with her digital media strategist for breast and pelvic exams. Colon cancer screening. She had her colonoscopy done at [facility] and is on 3-ludv-xmpcq. Immunizations. She is up-to-date on her vaccinations. General health concerns discussed with patient. Scribe services used to formulate this note under HIPAA compliance and under [place] law mandated for scribe services. Patient aware of service. Verbal consent and written consent taken from the patient. Patient understands and verbalizes understanding of the scribes services and all questions answered regarding scribes services. Patient agrees to use of scribes services. 07/10/2024 Annual physical exam (ICD-10 - Z00.00) Andrade is a 44-year-old lady with ADD, insomnia, galan's esophagus, polyosteoarthritis , hyperlipidemia, and hypertension here for annual physical. Plan is as follows: Hypertension. Blood pressure is within reasonable limits. She sees Dr. Jimenez at Nephrology. EKG is normal sinus rhythm at 75 bpm with no acute ST or T wave changes, no bundle branch blocks, normal intervals Hyperlipidemia. Continue Atorvastatin 10 MG once a day. ADHD. Stable on Methylphenidate 20 MG. She does not have any side effects. Overweight. Continue Wegovy 0.25 MG/0.5ML once a day. Advised dietary restrictions and regimental exercise. Goal is to lose 5-6 lbs a month. Eye screening. She sees her insurance office manager regularly. Dental screening. She sees dentist regularly. Skin cancer screening. She sees her hardwood floor finisher regularly. Breast cancer screening. She is up-to-date on her mammogram. Female screening. She follows up with her digital media strategist for breast and pelvic exams. Colon cancer screening. She had her colonoscopy done at [facility] and is on 0-iiup-qdrpp. Immunizations. She is up-to-date on her vaccinations. General health concerns discussed with patient. Scribe services used to formulate this note under HIPAA compliance and under [place] law mandated for scribe services. Patient aware of service. Verbal consent and written consent taken from the patient. Patient understands and verbalizes understanding of the scribes services and all questions answered regarding scribes services. Patient agrees to use of scribes services. 09/03/2024 Attention and concentration deficit (ICD-10 - [...] a month. Eye screening. She sees her insurance office manager regularly. Dental screening. She sees dentist regularly. Skin cancer screening. She sees her hardwood floor finisher regularly. Breast cancer screening. She is up-to-date on her mammogram. Female screening. She follows up with her digital media strategist for breast and pelvic exams. Colon cancer screening. She had her colonoscopy done at [facility] and is on 2-pmel-mdoxl. Immunizations. She is up-to-date on her vaccinations. [...] a month. Eye screening. She sees her insurance office manager regularly. Dental screening. She sees dentist regularly. Skin cancer screening. She sees her hardwood floor finisher regularly. Breast cancer screening. She is up-to-date on her mammogram. Female screening. She follows up with her digital media strategist for breast and pelvic exams. Colon cancer screening. She had her colonoscopy done at [facility] and is on 9-slfb-qkrgv. Immunizations. She is up-to-date on her vaccinations. [...] a month. Eye screening. She sees her insurance office manager regularly. Dental screening. She sees dentist regularly. Skin cancer screening. She sees her hardwood floor finisher regularly. Breast cancer screening. She is up-to-date on her mammogram. Female screening. She follows up with her digital media strategist for breast and pelvic exams. Colon cancer screening. She had her colonoscopy done at [facility] and is on [id number]. Immunizations. She is up-to-date on her vaccinations. General health concerns discussed with patient. 07/10/2024 Mixed hyperlipidemia (ICD-10 - E78.2) Andrade is a 44-year-old lady with ADD, insomnia, galan's esophagus, polyosteoarthritis , hyperlipidemia, and hypertension here for annual physical. Plan is as follows: Hypertension. Blood pressure is within reasonable limits. She sees Dr. Jimenez at Nephrology. EKG is normal sinus rhythm at [address] with [address] or T wave changes, no bundle branch blocks, normal intervals Hyperlipidemia. Continue Atorvastatin 10 MG once a day. ADHD. Stable on Methylphenidate 20 MG. She does not have any side effects. Overweight. Continue Wegovy 0.25 MG/0.5ML once a day. Advised dietary restrictions and regimental exercise. Goal is to lose 5-6 lbs a month. Eye screening. She sees her insurance office manager regularly. Dental screening. She sees dentist regularly. Skin cancer screening. She sees her hardwood floor finisher regularly. Breast cancer screening. She is up-to-date on her mammogram. Female screening. She follows up with her digital media strategist for breast and pelvic exams. Colon cancer screening. She had her colonoscopy done at [facility] and is on [id number]. Immunizations. She is up-to-date on her vaccinations. General health concerns discussed with patient. Scribe services used to formulate this note under HIPAA compliance and under [place] law mandated for scribe services. Patient aware of service. Verbal consent and written consent taken from the patient. Patient understands and verbalizes understanding of the scribes services and all questions answered regarding scribes services. Patient agrees to use of scribes services. 04/06/2024 Mixed hyperlipidemia (ICD-10 - E78.2) Andrade is a 43-year-old lady with ADD, insomnia, galan's esophagus, polyosteoarthritis , hyperlipidemia, and hypertension here for follow up. Plan is as follows: Hypertension. Blood pressure is within reasonable limits. She sees Dr. Jimenez at Nephrology. Hyperlipidemia. Continue Atorvastatin 10 MG once a day. ADHD. Stable on Methylphenidate 20 MG. She does not have any side effects. Her urine toxicology is positive for Marijuanna. Abstinence advised. Overweight. Continue Wegovy 0.25 MG/0.5ML once a day. Advised dietary restrictions and regimental exercise. Goal is to lose 5-6 lbs a month. Screening blood work before next appointment. General health concerns discussed with patient. Scribe services used to formulate this note under HIPAA compliance and under [place] law mandated for scribe services. Patient aware of service. Verbal consent and written consent taken from the patient. Patient understands and verbalizes understanding of the scribes services and all questions answered regarding scribes services. Patient agrees to use of scribes services. 12/19/2023 Low back pain (ICD-10 - M54.5) Andrade is a 43-year-old lady with ADD, insomnia, galan's esophagus, polyosteoarthritis , hyperlipidemia, and hypertension here for follow up. Plan is as follows: Hypertension. Blood pressure is within reasonable limits. She sees Dr. Jimenez at Nephrology. Hyperlipidemia. Continue Atorvastatin 10 MG once a day. ADHD. Stable on Methylphenidate 20 MG. She does not have any side effects. Her urine toxicology is positive for Marijuanna. Abstinence advised. Low back pain. Most likely nerve compression. Ordered electromyography. Blood work also ordered to check for any reversible causes. Screening blood work before next appointment. General health concerns discussed with patient. Scribe services used to formulate this note under HIPAA compliance and under [place] law mandated for scribe services. Patient aware of service. Verbal consent and written consent taken from the patient. Patient understands and verbalizes understanding of the scribes services and all questions answered regarding scribes services. Patient agrees to use of scribes services. 04/06/2024 Overweight (BMI 25.0-29.9) (ICD-10 - E66.3) Andrade is a 43-year-old lady with ADD, insomnia, galan's esophagus, polyosteoarthritis , hyperlipidemia, and hypertension here for follow up. Plan is as follows: Hypertension. Blood pressure is within reasonable limits. She sees Dr. Jimenez at Nephrology. Hyperlipidemia. Continue Atorvastatin 10 MG once a day. ADHD. Stable on Methylphenidate 20 MG. She does not have any side effects. Her urine toxicology is positive for Marijuanna. Abstinence advised. Overweight. Continue Wegovy 0.25 MG/0.5ML once a day. Advised dietary restrictions and regimental exercise. Goal is to lose 5-6 lbs a month. Screening blood work before next appointment. General health concerns discussed with patient. Scribe services used to formulate this note under HIPAA compliance and under [place] law mandated for scribe services. Patient aware of service. Verbal consent and written consent taken from the patient. Patient understands and verbalizes understanding of the scribes services and all questions answered regarding scribes services. Patient agrees to use of scribes services. 09/03/2024 Mixed hyperlipidemia (ICD-10 - E78.2) Andrade [...] a month. Eye screening. She sees her insurance office manager regularly. Dental screening. She sees dentist regularly. Skin cancer screening. She sees her hardwood floor finisher regularly. Breast cancer screening. She is up-to-date on her mammogram. Female screening. She follows up with her digital media strategist for breast and pelvic exams. Colon cancer screening. She had her colonoscopy done at [facility] and is on [id number]. Immunizations. She is up-to-date on her vaccinations. General health concerns discussed with patient. 07/10/2024 Essential (primary) hypertension (ICD-10 - I10) Andrade is a 44-year-old lady with ADD, insomnia, galan's esophagus, polyosteoarthritis , hyperlipidemia, and hypertension here for annual physical. Plan is as follows: Hypertension. Blood pressure is within reasonable limits. She sees Dr. Jimenez at Nephrology. EKG is normal sinus rhythm at 75 bpm with no acute [address] or T wave changes, no bundle branch blocks, normal intervals Hyperlipidemia. Continue Atorvastatin 10 MG once a day. ADHD. Stable on Methylphenidate 20 MG. She does not have any side effects. Overweight. Continue Wegovy 0.25 MG/0.5ML once a day. Advised dietary restrictions and regimental exercise. Goal is to lose 5-6 lbs a month. Eye screening. She sees her insurance office manager regularly. Dental screening. She sees dentist regularly. Skin cancer screening. She sees her hardwood floor finisher regularly. Breast cancer screening. She is up-to-date on her mammogram. Female screening. She follows up with her digital media strategist for breast and pelvic exams. Colon cancer screening. She had her colonoscopy done at [facility] and is on [id number]. Immunizations. She is up-to-date on her vaccinations. General health concerns discussed with patient. Scribe services used to formulate this note under HIPAA compliance and under [place] law mandated for scribe services. Patient aware of service. Verbal consent and written consent taken from the patient. Patient understands and verbalizes understanding of the scribes services and all questions answered regarding scribes services. Patient agrees to use of scribes services. 09/03/2024 Essential (primary) hypertension (ICD-10 - I10) [...] a month. Eye screening. She sees her insurance office manager regularly. Dental screening. She sees dentist regularly. Skin cancer screening. She sees her hardwood floor finisher regularly. Breast cancer screening. She is up-to-date on her mammogram. Female screening. She follows up with her digital media strategist for breast and pelvic exams. Colon cancer screening. She had her colonoscopy done at [facility] and is on [id number]. Immunizations. She is up-to-date on her vaccinations. General health concerns discussed with patient. 04/06/2024 Dietary counseling and surveillance (ICD-10 - Z71.3) Andrade is a 43-year-old lady with ADD, insomnia, galan's esophagus, polyosteoarthritis , hyperlipidemia, and hypertension here for follow up. Plan is as follows: Hypertension. Blood pressure is within reasonable limits. She sees Dr. Jimenez at Nephrology. Hyperlipidemia. Continue Atorvastatin 10 MG once a day. ADHD. Stable on Methylphenidate 20 MG. She does not have any side effects. Her urine toxicology is positive for Marijuanna. Abstinence advised. Overweight. Continue Wegovy 0.25 MG/0.5ML once a day. Advised dietary restrictions and regimental exercise. Goal is to lose 5-6 lbs a month. Screening blood work before next appointment. General health concerns discussed with patient. Scribe services used to formulate this note under HIPAA compliance and under [place] law mandated for scribe services. Patient aware of service. Verbal consent and written consent taken from the patient. Patient understands and verbalizes understanding of the scribes services and all questions answered regarding scribes services. Patient agrees to use of scribes services. Plan Of Treatment Pending Test Test Name Order Date Electromyography 12/19/2023 Next Appt Details Provider Name:GENIE YORK , 10/22/2024 03:45:00 PM, [address] [place] [address], [place], [address], Insurance Providers Payer Name Payer Address Payer Phone Subscriber Number Group Number Insured Name Patient Relationship to Insured Coverage Start Date Coverage End Date [facility] [address] [place] [phone] [id number] ANDRADE SAAVEDRA Self - patient is the insured 1 Medical (General) History Medical History History ICD Code ADHD Class 1 obesity insomnia calculus of kidney Galan's esophagus and she sees Dr. Hoover Surgical History Surgery Date(Month/Year) parathyroidectomy 2016 breast reduction left breast benign mass removal cholecystectomy
--- OUTSIDE RECORDS SUMMARY | 2024-09-27 14:05 | XMS_ITS | Clinical Summary ---
Author Organization [facility] Address [address] [address] Phone Care Team Providers Care Clinical Services Professional Name Role Phone Clarence Huynh MD Primary Care Provider [phone] Allergies Active Allergy Reactions Criticality Noted Date [...] Visit [facility] [address] [id number] Colby Blum MD [address] [phone] Health Maintenance Due Date Last Done Comments Pneumococcal Vaccine: Pediat rics (0 to 5 Years) and At-Risk Patients (6 to 64 Years) (1 of 2 - PCV) 1985 Hepatitis B Vaccine (1 of 3 - 19+ 3-dose series) 01/18 Influenza Vaccine (#1) 2024 Insurance [facility] Care Teams Clinical Services Professional Relationship Specialty Start Date End Date Clarence Huynh MD [address] [place] [address] PCP - General Internal Medicine 06/13/23
[2024-09-27 17:36] LABS: MANUAL DIFF FLAG NO
[2024-09-27 17:52] LABS: Appearance Urine Clear; Color Urine Yellow; Glucose Urine UA Negative (Negative); Leukocyte Esterase Urine Trace (Negative); Nitrite Urine Negative (Negative); PH 7.5 (5.0-9.0); UMIC TRIGGER UA YES; Urine Blood Negative (Negative); Urine Ketones Negative (Negative); Urine Protein Negative (Neg-Trace)
[2024-09-27 17:53] LABS: Basophils Absolute Auto 0.1 X10*3/uL (0.0-0.2); Basophils Percent Auto 0.7 % (0-2); Eosinophils Absolute Auto 0.1 X10*3/uL (0.0-0.4); Eosinophils Percent Auto 0.5 % (0-4); Hematocrit 39.4 % (37.0-47.0); Hemoglobin 12.8 g/dl (12.0-16.0); Imm Gran Abs Auto 0.02 X10*3/uL (0.00-0.03); Imm Gran Pct Auto 0.2 % (0.0-0.4); Lymphocytes Absolute Auto 2.3 X10*3/uL (1.2-4.9); Lymphocytes Percent Auto 23.4 % (20-40); Mean Corpuscular HGB Conc 32.5 g/dl (31.0-35.0); Mean Corpuscular Hemoglobin 27.2 pg (27.0-33.0); Mean Corpuscular Volume 83.7 fL (80.0-98.0); Mean Platelet Volume 10.2 fL (9.4-12.3); Monocytes Absolute Auto 0.4 X10*3/uL (0.1-1.2); Monocytes Percent Auto 4.4 % (2-11); Neutrophils Absolute Auto 6.8 x10*3/uL (2.0-8.3); Neutrophils Percent Auto 70.8 % (45-73); Platelet Count 472 X10*3/uL (160-400); Red Blood Count 4.71 X10*6/uL (4.20-5.50); Red Cell Distribution Width 14.4 % (11.0-16.0); White Blood Count 9.6 X10*3/uL (4.8-10.8)
[2024-09-27 17:57] LABS: Bacteria Urine None Seen (None Seen); Hyaline Casts Urine 0-2 /LPF (0-2); RBC Urine 0-2 /HPF (0-2); Squamous Epithelial Cell Urine 0-2 /HPF (0-2); WBC Urine 0-5 /HPF (0-5)
== END 2024-09-27 09:50 | disposition home or self-care (01) ==
LOC: HO.HKASLDS 09:49
PROVIDERS: PCP Hospitalist; Visit Provider Internal Medicine Rheumatology
DX: M25.561 Pain in right knee (principal); M25.562 Pain in left knee; G89.29 Other chronic pain; R76.8 Other specified abnormal immunological findings in serum; M70.61 Trochanteric bursitis, right hip; M70.62 Trochanteric bursitis, left hip; I73.00 Raynaud's syndrome without gangrene; D75.839 Thrombocytosis, unspecified
CPT/HCPCS: 36415; 81001; 85025

== ENCOUNTER 2024-10-12 14:57 | Outpatient (REF) | payer OTHER, SELFPAY ==
--- NOTE | ~2024-10-12 | XR_ITS ---
EXAMINATION: XR KNEE 1-2 VIEWS RIGHT, XR KNEE 1-2 VIEWS LEFT HISTORY: M17.0 - Bilateral primary osteoarthritis of knee COMPARISON: There are no prior studies available for comparison. FINDINGS: AP and lateral views of the bilateral knees are submitted. Osseous mineralization is normal. There is no fracture or dislocation. The joint spaces are preserved. The soft tissues are unremarkable. There is no joint effusion. XR/XR knee LT 2V IMPRESSION: Unremarkable examination of the bilateral knees. Electronically signed by: Paul Reilly MD 10/12/2024 04:03 PM [facility] T[facility]ARES
--- NOTE | ~2024-10-12 | XR_ITS ---
EXAMINATION: XR KNEE 1-2 VIEWS RIGHT, XR KNEE 1-2 VIEWS LEFT HISTORY: M17.0 - Bilateral primary osteoarthritis of knee COMPARISON: There are no prior studies available for comparison. FINDINGS: AP and lateral views of the bilateral knees are submitted. Osseous mineralization is normal. There is no fracture or dislocation. The joint spaces are preserved. The soft tissues are unremarkable. There is no joint effusion. XR/XR knee RT 2V IMPRESSION: Unremarkable examination of the bilateral knees. Electronically signed by: Paul Reilly MD 10/12/2024 04:03 PM [facility] T[facility]
--- OUTSIDE RECORDS SUMMARY | 2024-10-12 14:59 | XMS_ITS | Patient Health Record ---
Author Organization [employer] Address [address] [place] [address] Care Team Providers Care Exchange Specialist Name Role Phone GENIE YORK Primary Care Provider [phone] Rena Ramsey Unavailable [phone] Allergies Allergen (clinical drug ingredient) Drug/Non Drug Allergy documented on EMR Reaction Allergy Type Onset Date Status codeine Codeine rash Drug Allergy Active Latex Latex rash Allergy Active Penicillin rash Drug Allergy Active Morphine Sulfate (Bulk) anaphylaxis Drug Allergy Active Results Component Value Reference Range Notes Lyme Disease Serology w/Refl ex-[id number] Reviewed date:12/21/2023 04:39:31 PM Interpretation: Performing Lab:[facility], [facility], Phone - [phone], Director - [facility] Notes/Report: Lyme Total Antibody AVA Negative Negative Lyme antibodies not detected. Reflex testing is not indicated. No laboratory evidence of infection with B. burgdorferi (Lyme disease). Negative results may occur in patients recently infected (less than or equal to 14 days) with B. burgdorferi. If recent infection is suspected, repeat testing on a new sample collected in 7 to 14 days is recommended. Sedimentation Rate-Westergre n-[id number] Reviewed date:12/21/2023 04:39:40 PM Interpretation: Performing Lab:[facility], [facility], [place], Phone - [phone], Director - [facility]sa Notes/Report: Sedimentation Rate-Westergren 2 0-32 mm/hr C-Reactive Protein, Quant-00 6627 Reviewed date:12/21/2023 04:39:38 PM Interpretation: Performing Lab:[facility], [facility], [place], Phone - [phone], Director - [facility]sa Notes/Report: C-Reactive Protein, Quant 1 0-10 mg/L Rheumatoid Factor (RF)-02197 2 Reviewed date:12/21/2023 04:39:36 PM Interpretation: Performing Lab:[facility], [address] [place] [address], [place], Phone - [phone], Director - [facility] Notes/Report: Rheumatoid Factor (RF) <10.0 <14.0 IU/mL Anti-La (SS-B) Ab (RDL)-5203 20 Reviewed date:06/05/2024 11:16:42 AM Interpretation: Performing Lab:[facility], [address] [place] [address], Phone - [phone], Director - [facility] Notes/Report: Test(s) 223056-Ypda-Jnnpthy Ab by IFA (RDL); 230652- Homogeneous Pattern; 691894-Acqwyxew Pattern; 928466-Hswysdk Pattern; 339324-Pgdo-LJ-W 52kD Ab, IgG (RDL) was developed and its performance characteristics determined by [employer]. It has not been cleared or approved by the Food and Drug Administration. Anti-La (SS-B) Ab (RDL) <20 <20 Units Negative: <20 Weak Positive: 20-39 Moderate Positive: 40-80 Strong Positive: >80 Anti-Nuclear Ab by IFA (RDL) -561779 Reviewed date:06/05/2024 11:16:47 AM Interpretation: Performing Lab:[facility], [address] [place] [address], Phone - [phone], Director - [facility] Notes/Report: Test(s) 120289-Ujzb-Zjwnowk Ab by IFA (RDL); 152852- Homogeneous Pattern; 647937-Crefhfjm Pattern; 777273-Msunqyp Pattern; 396295-Zygk-WC-M 52kD Ab, IgG (RDL) was developed and its performance characteristics determined by [facility]. It has not been cleared or approved by the Food and Drug Administration. Test(s) 071934-Tron-Ckxeiyb Ab by IFA (RDL); 277565- Homogeneous Pattern; 017027-Pvumaojd Pattern; 531219-Spdqmzz Pattern; 269791-Uvpb-[place]-Q 52kD Ab, IgG (RDL) was developed and its performance characteristics determined by [facility]. It has not been cleared or approved by the Food and Drug Administration. Anti-Nuclear Ab by IFA (RDL) Positive Negative Homogeneous Pattern 1:160 <1:40 Speckled Pattern 1:80 <1:40 Midbody Pattern 1:80 <1:40 Note: HAMIDA performed b y Indirect Fluorescent Antibody (IFA) Anti-SS-A 52kD Ab, IgG (RDL) -246720 Reviewed date:06/05/2024 11:16:56 AM Interpretation: Performing Lab:[facility], [address] [place] [address], Phone - [phone], Director - [facility] Notes/Report: Test(s) 505762-Phhk-Yakxhbn Ab by IFA (RDL); 723156- Homogeneous Pattern; 139918-Tngdngmp Pattern; 899015-Nsuheme Pattern; 654265-Nmvo-NH-N 52kD Ab, IgG (RDL) was developed and its performance characteristics determined by [facility]. It has not been cleared or approved by the Food and Drug Administration. Anti-SS-A 52kD Ab, IgG (RDL) <20 <20 Units Negative: <20 Weak Positive: 20 - 39 Moderate Positive: 40 - 80 Strong Positive: >80 Anti-Sm Ab (RDL)-088237 Reviewed date:06/05/2024 11:16:49 AM Interpretation: Performing Lab:[facility], [address] [place] [address], Phone - [phone], Director - [facility] Notes/Report: Test(s) 624376-Bufc-Hbzxdqz Ab by IFA (RDL); 255775- Homogeneous Pattern; 776585-Txjcjtbk Pattern; 796760-Cuvvxdq Pattern; 459539-Thcq-XS-D 52kD Ab, IgG (RDL) was developed and its performance characteristics determined by [facility]. It has not been cleared or approved by the Food and Drug Administration. Anti-Sm Ab (RDL) <20 <20 Units Negative: <20 Weak Positive: 20-39 Moderate Positive: 40-80 Strong Positive: >80 Qthm-Mv-2-450102 Reviewed date:06/05/2024 11:16:51 AM Interpretation: Performing Lab:[facility], [address] [place] [address], Phone - [phone], Director - [facility] Notes/Report: Test(s) 950931-Avqg-Kelmexx Ab by IFA (RDL); 977754- Homogeneous Pattern; 146656-Kntgqpzr Pattern; 693587-Nffrvbd Pattern; 136167-Xtpj-FX-T 52kD Ab, IgG (RDL) was developed and its performance characteristics determined by [facility]. It has not been cleared or approved by the Food and Drug Administration. Anti-Shirley-1 <0.2 0.0-0.9 AI Anti-dsDNA Antibodies-760739 Reviewed date:06/05/2024 11:15:54 AM Interpretation: Performing Lab:[facility], [address] [facility], Phone - [phone], Director - [facility] Notes/Report: Test(s) 999264-Dwmp-Qoeftru Ab by IFA (RDL); 947846- Homogeneous Pattern; 096244-Zryiwgen Pattern; 540898-Fzwsgzt Pattern; 875740-Biem-LT-M 52kD Ab, IgG (RDL) was developed and its performance characteristics determined by [facility]. It has not been cleared or approved by the Food and Drug Administration. Anti-DNA (DS) Ab Qn 1 0-9 IU/mL Negative <5 Equivocal 5 - 9 Positive >9 TSH-878937 Reviewed date:05/24/2024 04:51:35 PM Interpretation: Performing Lab:[facility], [address] [place] [address], Phone - [phone], Director - [facility] Notes/Report: TSH 1.920 0.450-4.500 uIU/mL Lipid Panel-179601 Reviewed date:05/24/2024 04:51:37 PM Interpretation: Performing Lab:[facility] [place], [address] [facility], Phone - [phone], Director - [facility] Notes/Report: Cholesterol, Total 183 100-199 mg/dL Triglycerides 134 0-149 mg/dL HDL Cholesterol 76 >39 mg/dL VLDL Cholesterol Kiko 23 5-40 mg/dL LDL Chol Calc (NIH) 84 0-99 mg/dL Albumin/Creatinine Ratio,Uri ne-709949 Reviewed date:05/24/2024 04:51:46 PM Interpretation: Performing [facility], [address] [facility], Phone - [phone], Director - MDVianney Notes/Report: Creatinine, Urine 210.4 Not Estab. mg/dL Albumin, Urine 7.7 Not Estab. ug/mL Alb/Creat Ratio 4 0-29 mg/g creat Normal: 0 - 29 Moderately increased: 30 - 300 Severely increased: >300 Comp. Metabolic Panel (14)-3 Reviewed date:05/24/2024 04:51:49 PM Interpretation: Performing Lab:[facility] [place], [address] [facility], Phone - [phone], Director - [facility] Notes/Report: Glucose 83 70-99 [...] Notes Problem Obesity due to excess calories (204534142) Other obesity due to excess calories (E66.09) Active confirmed Problem Mixed hyperlipidemia (654738119) Mixed hyperlipidemia (E78.2) Active confirmed Problem Insomnia (504209793) Insomnia, unspecified (G47.00) Active confirmed Problem Atherosclerosis of renal artery (70950068) Atherosclerosis of renal artery (I70.1) Active confirmed Problem Galan's esophagus (413645152) Galan's esophagus without dysplasia (K22.70) Active confirmed Problem Polyarthritis (300363173) 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) Active confirmed Problem Attention and concentration deficit (R41.840) Active confirmed Problem Essential hypertension (86839339) Essential (primary) hypertension (I10) Active confirmed Problem Indeterminate colitis (950441243) 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) Active confirmed Problem Adult-onset obesity (932649214) Adult-onset obesity (E66.9) Active confirmed Problem Overweight (174145972) Overweight (BMI 25.0-29.9) (E66.3) Active confirmed Vital Signs Heart Rate 96 /min 09/03/2024 Temperature 96.9 degrees Fahrenheit 09/03/2024 Blood pressure diastolic 74 mm Hg 09/03/2024 Oximetry 98 % 09/03/2024 Height 65 in 09/03/2024 Blood pressure systolic 118 mm Hg 09/03/2024 Weight 166.9 lbs 09/03/2024 BMI 27.77 kg/m2 09/03/2024 Encounters Encounter Location Date Provider Diagnosis [address] [place] [address] 12/19/2023 PRESCOTT GUL Attention and concentration deficit R41.840 ; Pain in unspecified joint M25.50 and Low back pain M54.[address] [address] 04/06/2024 PRESCOTT GUL Attention and concentration deficit R41.840 ; Essential (primary) hypertension I10 ; Mixed hyperlipidemia E78.2 ; Overweight (BMI 25.0-29.9) E66.3 and Dietary counseling and surveillance Z71.[address] [address] 07/10/2024 PRESCOTT GUL Attention and concentration deficit R41.840 ; Annual physical exam Z00.00 ; Mixed hyperlipidemia E78.2 and Essential (primary) hypertension I10 [address] [place] [address] 09/03/2024 PRESCOTT GUL Attention and concentration deficit R41.840 ; Overweight (BMI 25.0-29.9) E66.3 ; Dietary counseling and surveillance Z71.3 ; Mixed hyperlipidemia E78.2 and Essential (primary) hypertension I10 [address] [address] 12/02/2023 PRESCOTT GUL Body mass index [BMI ] 28.0-28.9, adult Z68.[address] [address] 12/19/2023 [facility] [address] [facility] [place] [address] 12/19/2023 PRESCOTT GUL Low back pain, unspecified M54.50 [facility] [address] [facility] [place] [address] 01/16/2024 [facility] [address] [facility] [place] [address] 02/16/2024 [facility] [address] [place] [address] 02/23/2024 [facility] [address] [facility] [place] [address] 02/23/2024 [facility] [address] [place] [address] 03/15/2024 [facility] [address] [facility] [place] [address] 03/29/2024 [facility] [address] [facility] [place] [address] 04/04/2024 [facility] [address] [facility] [place] [address] 05/03/2024 [facility] [address] [facility] [place] [address] 05/09/2024 [facility] [address] [place] [address] 05/28/2024 [facility] [address] [facility] [place] [address] 06/12/2024 [facility] [address] [place] [address] 08/01/2024 [facility] [address] [place] [address] 08/02/[address] [place] [address] 08/10/[address] [place] [address] 05/25/2024 PRESCOTT ABY Essential (primary) hypertension I10 [address] [place] [address] 05/25/[address] [place] [address] 06/11/[address] [place] [address] 08/02/[address] [place] [address] 08/20/2024 PRES[facility] JAYLEN Assessments Encounter Date Diagnosis (ICD Code) Assessment [...] this note under HIPAA compliance and under [place] law mandated for scribe services. Patient aware [...] this note under HIPAA compliance and under [place] law mandated for scribe services. Patient aware [...] this note under HIPAA compliance and under [place] law mandated for scribe services. Patient aware [...] this note under HIPAA compliance and under [place] law mandated for scribe services. Patient aware [...] a month. Eye screening. She sees her shield installer regularly. Dental screening. She sees dentist regularly. Skin cancer screening. She sees her car spotter regularly. Breast cancer screening. She is up-to-date on her mammogram. Female screening. She follows up with her local company hazmat driver for breast and pelvic exams. Colon cancer screening. She had her colonoscopy done at [facility] and is on 3-giim-tjiwu. Immunizations. She is up-to-date on her vaccinations. General health concerns discussed with patient. Scribe services used to formulate this note under HIPAA compliance and under [place] law mandated for scribe services. Patient aware [...] a month. Eye screening. She sees her shield installer regularly. Dental screening. She sees dentist regularly. Skin cancer screening. She sees her car spotter regularly. Breast cancer screening. She is up-to-date on her mammogram. Female screening. She follows up with her local company hazmat driver for breast and pelvic exams. Colon cancer screening. She had her colonoscopy done at [facility] and is on 5-zkjc-nvhfm. Immunizations. She is up-to-date on her vaccinations. General health concerns discussed with patient. Scribe services used to formulate this note under HIPAA compliance and under [place] law mandated for scribe services. Patient aware [...] a month. Eye screening. She sees her shield installer regularly. Dental screening. She sees dentist regularly. Skin cancer screening. She sees her car spotter regularly. Breast cancer screening. She is up-to-date on her mammogram. Female screening. She follows up with her local company hazmat driver for breast and pelvic exams. Colon cancer screening. She had her colonoscopy done at [facility] and is on 0-oaaz-qddiz. Immunizations. She is up-to-date on her vaccinations. [...] a month. Eye screening. She sees her shield installer regularly. Dental screening. She sees dentist regularly. Skin cancer screening. She sees her car spotter regularly. Breast cancer screening. She is up-to-date on her mammogram. Female screening. She follows up with her local company hazmat driver for breast and pelvic exams. Colon cancer screening. She had her colonoscopy done at [facility] and is on 2-uocx-pecwh. Immunizations. She is up-to-date on her vaccinations. [...] a month. Eye screening. She sees her shield installer regularly. Dental screening. She sees dentist regularly. Skin cancer screening. She sees her car spotter regularly. Breast cancer screening. She is up-to-date on her mammogram. Female screening. She follows up with her local company hazmat driver for breast and pelvic exams. Colon cancer screening. She had her colonoscopy done at [facility] and is on 9-azox-qbljw. Immunizations. She is up-to-date on her vaccinations. [...] a month. Eye screening. She sees her shield installer regularly. Dental screening. She sees dentist regularly. Skin cancer screening. She sees her car spotter regularly. Breast cancer screening. She is up-to-date on her mammogram. Female screening. She follows up with her local company hazmat driver for breast and pelvic exams. Colon cancer screening. She had her colonoscopy done at [facility] and is on 5-hajr-parwn. Immunizations. She is up-to-date on her vaccinations. General health concerns discussed with patient. Scribe services used to formulate this note under HIPAA compliance and under [place] law mandated for scribe services. Patient aware [...] this note under HIPAA compliance and under [place] law mandated for scribe services. Patient aware [...] this note under HIPAA compliance and under [place] law mandated for scribe services. Patient aware [...] this note under HIPAA compliance and under [place] law mandated for scribe services. Patient aware [...] a month. Eye screening. She sees her shield installer regularly. Dental screening. She sees dentist regularly. Skin cancer screening. She sees her car spotter regularly. Breast cancer screening. She is up-to-date on her mammogram. Female screening. She follows up with her local company hazmat driver for breast and pelvic exams. Colon cancer screening. She had her colonoscopy done at [facility] and is on 1-ctbs-acrku. Immunizations. She is up-to-date on her vaccinations. [...] a month. Eye screening. She sees her shield installer regularly. Dental screening. She sees dentist regularly. Skin cancer screening. She sees her car spotter regularly. Breast cancer screening. She is up-to-date on her mammogram. Female screening. She follows up with her local company hazmat driver for breast and pelvic exams. Colon cancer screening. She had her colonoscopy done at [facility] and is on 4-jfak-vuady. Immunizations. She is up-to-date on her vaccinations. General health concerns discussed with patient. Scribe services used to formulate this note under HIPAA compliance and under [place] law mandated for scribe services. Patient aware [...] a month. Eye screening. She sees her shield installer regularly. Dental screening. She sees dentist regularly. Skin cancer screening. She sees her car spotter regularly. Breast cancer screening. She is up-to-date on her mammogram. Female screening. She follows up with her local company hazmat driver for breast and pelvic exams. Colon cancer screening. She had her colonoscopy done at [facility] and is on 8-xhfw-mclnu. Immunizations. She is up-to-date on her vaccinations. [...] this note under HIPAA compliance and under [place] law mandated for scribe services. Patient aware of service. Verbal consent and written consent taken from the patient. Patient understands and verbalizes understanding of the scribes services and all questions answered regarding scribes services. Patient agrees to use of scribes services. Plan Of Treatment Pending Test Test Name Order Date Electromyography 12/19/2023 Next Appt Details Provider Name:GENIE YORK , 10/22/2024 03:45:00 PM, [address], [place], [address], Insurance Providers Payer Name Payer Address Payer Phone Subscriber Number Group Number Insured Name Patient Relationship to Insured Coverage Start Date Coverage End Date [facility] [address] [place] [address] [phone] [id number] ANDRADE SAAVEDRA Self - patient is the insured 1 Medical (General) History Medical History History ICD Code ADHD Class 1 obesity insomnia calculus of kidney Galan's esophagus and she sees Dr. Hoover Surgical History Surgery Date(Month/Year) parathyroidectomy 2016 breast reduction left breast benign mass removal cholecystectomy
--- OUTSIDE RECORDS SUMMARY | 2024-10-12 14:59 | XMS_ITS ---
Author Organization [facility] Address [address] [address] Care Team Providers Care Route Jumper Name Role Phone GENIE YORK Primary Care Provider REASON FOR VISIT Hospital follow up needed Encounters Encounter Location Date Provider Diagnosis [facility] [address] [facility] [address] [place] [address] 08/10/2024 GENIE YORK Plan Of Treatment Next Appt Details Provider Name:GENIE YORK , 10/22/2024 03:45:00 PM, [address] [facility] [address], [place], [address], Progress Notes * ANDRADE SAAVEDRA ADOB:1980 (44 yo F)Acc No.[id number]:08/10/2024 Patient:?ANDRADE SAAVEDRA :1980???Age:44 Y???Sex:Female Address:[address], [place] [address] * true * Date:? Generated for Gurvinderi estuardo/Emelyn/eTransmitting on:?10/12/2024 02:59 PM EST
--- OUTSIDE RECORDS SUMMARY | 2024-10-12 15:00 | XMS_ITS | Clinical Summary ---
Author Organization [facility] Address [address] [address] Phone Care Team Providers Care Gun Barrel Finisher Name Role Phone Clarence Huynh MD Primary Care Provider [phone] Allergies Active Allergy Reactions Criticality Noted Date [...] Visit [facility] [address] [id number] Colby Blum MD [address] [address] Health Maintenance Due Date Last Done Comments Pneumococcal Vaccine: Pediat rics (0 to 5 Years) and At-Risk Patients (6 to 64 Years) (1 of 2 - PCV) 1985 Hepatitis B Vaccine (1 of 3 - 19+ 3-dose series) 01/18 Influenza Vaccine (#1) 2024 Insurance [facility] Care Teams Gun Barrel Finisher Relationship Specialty Start Date End Date Clarence Huynh MD [address] [place] [address] PCP - General Internal Medicine 06/13/23
--- OUTSIDE RECORDS SUMMARY | 2024-10-12 15:00 | XMS_ITS ---
Author Organization [facility] Address [address] [place] [address] Care Team Providers Care Telemarketing Fundraiser Name Role Phone [email or web address] Primary Care Provider [phone] REASON FOR VISIT New Refill Request Medications Medication SIG (Take, Route, Frequency, Duration) Notes Start Date End Date Status Methylphenidate HCl 20 MG TAKE 1 TABLET BY MOUTH TWO TIMES A DAY ON AN EMPTY STOMACH Twice a day for 28 days 08/20/2024 Active Encounters Encounter Location Date Provider Diagnosis [facility] [address] [address] 08/20/2024 GENIE YORK Plan Of Treatment Medication Medication Name Sig Start Date Stop Date Notes Methylphenidate HCl 20 MG TAKE 1 TABLET BY MOUTH TWO TIMES A DAY ON AN EMPTY STOMACH Twice a day for 28 days 08/20/2024 Next Appt Details Provider Name:GENIE YORK , 10/22/2024 03:45:00 PM, [address] [place] [address], [phone], Progress Notes * ANDRADE SAAVEDRA ADOB:1980 (44 yo F)Acc No.[id number]:08/20/2024 Patient:?ANDRADE SAAVEDRA :1980???Age:44 Y???Sex:Female Address:[address] [place] [address] [place] [address] * Refills? Refill Methylphenidate HCl Tablet, 20 MG, 56, TAKE 1 TABLET BY MOUTH TWO TIMES A DAY ON AN EMPTY STOMACH, Twice a day, 28 days, Refills=0 * true * Date:? Generated for Davey marte/Emelyn/Jonathanitting on:?10/12/2024 02:59 PM EST
--- OUTSIDE RECORDS SUMMARY | 2024-10-12 15:00 | XMS_ITS | Patient Health Record ---
Author Organization [facility] Address [address] [facility] [address] [place] [address] Care Team Providers Care Order Selector Name Role Phone Clarence Huynh Primary Care [...] Insured Coverage Start Date Coverage End Date [facility] [address] [facility] [place] [phone] [id number] Alyson Stewart Self - patient is the insured Medical (General) History Medical History History ICD Code galan's esophagus ADD Surgical History Surgery Date(Month/Year) cholecystectomy parathyroidectomy
--- OUTSIDE RECORDS SUMMARY | 2024-10-12 15:00 | XMS_ITS ---
Author Organization [facility] Address [address] [facility] [address] [place] [address] Care Team Providers Care Hand Candle Dipper Name Role Phone GENIE YORK Primary Care Provider [phone] Allergies Allergen (clinical drug ingredient) Drug/Non Drug [...] Status W/U Status Risk Notes Problem Overweight ([id number]) Overweight (BMI 25.0-29.9) (E66.3) Active confirmed Vital Signs Temperature 96.9 degrees Fahrenheit 09/03/19 25 Oximetry 98 % 09/03/2024 Heart Rate 96 /min 09/03/2024 Blood pressure systolic 118 mm Hg 09/03/19 25 Blood pressure diastolic 74 mm Hg 025 Weight 166.9 lbs 09/03/2024 BMI 27.77 kg/m2 09/03/2024 Height 65 in 09/03/2024 Encounters Encounter Location Date Provider Diagnosis [facility] [address] [facility] [address] [place] [address] 09/03/2024 GENIE YORK Attention and concentration deficit [...] a month. Eye screening. She sees her clinical investigator regularly. Dental screening. She sees dentist regularly. Skin cancer screening. She sees her fountain brush assembler regularly. Breast cancer screening. She is up-to-date on her mammogram. Female screening. She follows up with her hides inspector for breast and pelvic exams. Colon cancer screening. She had her colonoscopy done at [facility] and is on 6-[id number]. Immunizations. She is up-to-date on her vaccinations. [...] a month. Eye screening. She sees her clinical investigator regularly. Dental screening. She sees dentist regularly. Skin cancer screening. She sees her fountain brush assembler regularly. Breast cancer screening. She is up-to-date on her mammogram. Female screening. She follows up with her hides inspector for breast and pelvic exams. Colon cancer screening. She had her colonoscopy done at [facility] and is on [id number]. Immunizations. She is up-to-date on her vaccinations. [...] a month. Eye screening. She sees her clinical investigator regularly. Dental screening. She sees dentist regularly. Skin cancer screening. She sees her fountain brush assembler regularly. Breast cancer screening. She is up-to-date on her mammogram. Female screening. She follows up with her hides inspector for breast and pelvic exams. Colon cancer screening. She had her colonoscopy done at [facility] and is on [id number]. Immunizations. She is up-to-date on her vaccinations. [...] a month. Eye screening. She sees her clinical investigator regularly. Dental screening. She sees dentist regularly. Skin cancer screening. She sees her fountain brush assembler regularly. Breast cancer screening. She is up-to-date on her mammogram. Female screening. She follows up with her hides inspector for breast and pelvic exams. Colon cancer screening. She had her colonoscopy done at [facility] and is on [id number]. Immunizations. She is up-to-date on her vaccinations. [...] a month. Eye screening. She sees her clinical investigator regularly. Dental screening. She sees dentist regularly. Skin cancer screening. She sees her fountain brush assembler regularly. Breast cancer screening. She is up-to-date on her mammogram. Female screening. She follows up with her hides inspector for breast and pelvic exams. Colon cancer screening. She had her colonoscopy done at [facility] and is on 5-[id number]. Immunizations. She is up-to-date on her vaccinations. [...] Provider Name:GENIE YORK , 10/22/2024 03:45:00 PM, [address] [place] [address], [id number], Procedure Notes * Category Sub-Category Detail Notes Urine Toxicology Urine Toxicology Cocaine: Negative Morphine: Negative Marijuanna: Negative Benzodiazepines: Negative Oxycodone: Negative Amphetamine: Negative Barbiturates: Negative Buprenorphine: Negative Methadone: Negative MDMA: Negative Proproxyphene: Negative Phencyclidine: Negative Tricyclic Antidepressant: Negative Fentanyl: Negative Alcohol: Negative MET: Negative Progress Notes * ANDRADE SAAVEDRA ADOB:1980 (44 yo F)Acc No.[id number]:09/03/2024 Progress Notes Patient:?ANDRADE SAAVEDRA Provider:?GENIE YORK MD :1980???Age:44 Y???Sex:Female D ate:09/03/2024 Address:[address] [place] [address] [facility]ji [id number] Subjective: * Chief Complaints: * ???1 month [...] relationship with male partner. 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 * Medications:?TakingLisinopri l 20 MG Tablet [...] is shaking, sensations intact.? Gait normal.?FEMALE GENITOURINARY:?__.?MALE GENITOURINARY:?__.?PODIATRIC:?Normal.?Operation Specialist? .? Assessment: * Assessment: 1.?Attention and concentrati [...] a month. Eye screening. She sees her clinical investigator regularly. Dental screening. She sees dentist regularly. Skin cancer screening. She sees her fountain brush assembler regularly. Breast cancer screening. She is up-to-date on her mammogram. Female screening. She follows up with her hides inspector for breast and pelvic exams. Colon cancer screening. She had her colonoscopy done at [facility] and is on 7-[id number]-xphie. Immunizations. She is up-to-date on her vaccinations. General health concerns discussed with patient. Plan: * Treatment: * Procedures:?Urine Toxicology:?Urine Toxicology ?Cocaine?Negative ?Morphine?Negative ?Marijuanna?Negative ?Benzodiazepines?Negative ?Oxycodone?Negative ?Amphetamine?Negative ?Barbiturates?Negative ?Buprenorphine?Negative ?Methadone?Negative ?MDMA?Negative ?Proproxyphene?Negative ?Phencyclidine?Negative ?Tricyclic Antidepressant?Negative ?Fentanyl?Negative ?Alcohol?Negative ?MET?Negative? * Procedure Codes:?33303 DRUG TEST PRSMV DIR OPT OBS, Modifiers: QW 3074F SYST BP LT 130 MM [id number] DIAST BP < 80 MM HG * Follow Up:?4 Weeks * * Sign off status: Completed true * Provider:?GENIE YORK MD Date:?09/03 Generated for Davey marte/Emelyn/eTransmsixto on:?10/12/2024 02:59 PM EST History and Physical Notes * [...] Normal Psychiatry Normal OROPHARYNX Normal SINUSES Normal Operation Specialist
== END 2024-10-12 14:58 | disposition home or self-care (01) ==
LOC: HO.HHCX 14:57
PROVIDERS: Visit Provider Internal Medicine Rheumatology
DX: M17.0 Bilateral primary osteoarthritis of knee (principal)
CPT/HCPCS: 73560

== ENCOUNTER → 2024-10-12 14:57 | Outpatient (BNV) | payer OTHER, SELFPAY | PROVIDERS: Visit Provider Radiology Diagnostic Radiology | DX: M17.0 Bilateral primary osteoarthritis of knee (principal) | CPT/HCPCS: 73560 ==